=== PATIENT | female | born 1975 | race Caucasian/White ===

== ENCOUNTER → 2016-12-09 | Outpatient (REF) | payer OTHER | LOC: M SFHCLERA 19:52 | PROVIDERS: ATTEND Physician Assistant | DX: R50.9 Fever, unspecified (principal) ==

== ENCOUNTER 2017-01-18 04:38 | Emergency (ER) | payer OTHER ==
[2017-01-18] MEDS ORDERED: KETOROLAC 30 MG/ML VIAL (J1885) As Ordered ONE (05:57)
[2017-01-18] MEDS ORDERED: METHOCARBAMOL 500 MG TAB As Ordered ONE (06:00)
[2017-01-18] MEDS ORDERED: traMADol 50 MG TAB As Ordered ONE (06:50)
--- NOTE | 2017-01-18 07:12 | EDDOCDS ---
Physician Documentation [facility] Name: Radha Melton Age: 41 yrs Sex: Female : 1975 Arrival Date: 01/18/2017 Time: 04:38 Bed 10 Private MD: Disposition: 01/18/17 07:01 Discharged to Home/Self Care. Impression: Chronic pain syndrome, Pain in left shoulder, Low back pain. - Condition is Stable. - Medication Reconciliation, Local Pharmacy Hours form. - Follow up: Private Physician; When: Call to arrange an appointment; Reason: Continuance of care. - Problem is chronic. - Symptoms have improved. Historical: - Allergies: Xanax (itchy, burning feeling all over); - Home Meds: 1. estrogen .625 mg daily (Last dose: 01/17/2017) 2. estrogen vaginal cream twice weekly as needed (Last dose: 01/17/2017) 3. gabapentin 300 mg Oral tab 1 tab twice a day for neuropathic pain (Last dose: 01/13/2017) 4. Lipitor 40 mg Oral tab 1 tab once daily (Last dose: 01/17/2017) 5. medroxyprogesterone 5 mg Oral tab 1 tab once daily (Last dose: 01/17/2017) - PMHx: chronic left shoulder pain; Chronic Low Back Pain; ectopic ; Endometriosis; Hypercholesterolemia; Migraine Headaches; spinal injections; - PSHx: Hysterectomy; Appendectomy; Bunion Surgery; Laparoscopy; - Social history: Smoking status: Patient states was never smoker of tobacco. No barriers to communication noted, The patient speaks fluent Estonian, Speaks appropriately for age. - Family history: Not pertinent. - : The pt / caregiver states he / she is not on anticoagulants. Home medication list is obtained from the patient, [employer] import data. - Exposure Risk Screening:: None identified. 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 6 in. (167.64 cm) (R); Pain 8/10; 07:09 BP 134 / 94; Pulse 83; Resp 18; Temp 97.4; Pulse Ox 97% ; Pain 5/10; pml 07:11 Pain 5/10; pml 05:11 Body Mass Index 27.44 (77.11 kg, 167.64 cm) [facility] [place]DM: 05:31 ketorolac 60 mg IM once ordered. cs11 05:31 Robaxin 1 grams IM once ordered. cs11 06:01 Financial registration complete. hs2 06:02 [facility] Payment Agreement was scanned into [employer] and attached to record. hs2 06:47 traMADol 50 mg PO once ordered. cs11 Administered Medications: 06:05 Drug: ketorolac 60 mg [ketorolac 30 mg/mL (1 mL) injection solution (2 mL)] Route: IM; af2 Site: left gluteus; 07:11 Follow up: Pain 5/10 Adult; Response: Pain is decreased pml 06:06 Drug: Robaxin 1 grams [Robaxin 100 mg/mL injection solution (10 mL)] {Note: PO per Dr. larry De Leon.} Route: IM; Site: right gluteus; 06:52 Drug: traMADol 50 mg [tramadol 50 mg tablet (1 tabs)] Route: PO; af2 Signatures: Giana Camarena RN RN [facility] [place] Yokasta Christensen RN RN pml Schiff, Craig, DO cs11 Jolly Alegre RN RN af2 Aleena Carreon, Reg Reg hs2 The chart was reviewed and I authenticate all verbal orders and agree with the evaluation and treatment provided.Attachments: 06:02 [facility] Payment Agreement hs2 MTDD
--- NOTE | 2017-01-18 07:13 | EDDOCDS ---
Nurse's Notes [facility] Name: Radha Melton Age: 41 yrs Sex: Female : 1975 Arrival Date: 01/18/2017 Time: 04:38 Bed 10 Private MD: Diagnosis: Chronic pain syndrome;Pain in left shoulder;Low back pain Presentation: 01/18 05:04 Presenting complaint: Patient states: Sharp pain from neck, down the spine to the mid kmg1 left buttocks. No recent injury. Acute neurological deficits are not present. Mechanism of Injury: No Mechanism of Injury. Suicide/Homicide risk assessment- the patient denies having any suicidal and/or homicidal ideations and does not present with any other emotional, behavioral or mental health complaints. Status: The patient is a dependent. Transition of care: patient was not received from another setting of care. 05:04 Acuity: JHONNY Level 4 km 05:04 Method Of Arrival: Walkin/Carried/Asstd km 07:11 Adult Sepsis Screening: The patient does not have new or worsening altered mentation. pml Patient's respiratory rate is less than 22. Systolic blood pressure is greater than 100. Patient has a qSOFA score of 0- Negative Sepsis Screen. Triage Assessment: 05:08 General: Appears in no apparent distress, comfortable, Behavior is appropriate for age, kmg1 cooperative. Pain: Location: anterior aspect of left shoulder, back of neck, left gluteus vlad, thoracic area, lumbar area and sacrum Pain currently is 8 out of 10 on a pain scale. Quality of pain is described as sharp, shooting. HIV screening NA for this visit Offered previously. Musculoskeletal: Reports pain in back of neck and back. 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 estrogen .625 mg daily (Last dose: 01/17/2017) 2. estrogen vaginal cream twice weekly as needed (Last dose: 01/17/2017) 3. gabapentin 300 mg Oral tab 1 tab twice a day for neuropathic pain (Last dose: 01/13/2017) 4. Lipitor 40 mg Oral tab 1 tab once daily (Last dose: 01/17/2017) 5. medroxyprogesterone 5 mg Oral tab 1 tab once daily (Last dose: 01/17/2017) - PMHx: chronic left shoulder pain; Chronic Low Back Pain; ectopic ; Endometriosis; Hypercholesterolemia; Migraine Headaches; spinal injections; - PSHx: Hysterectomy; Appendectomy; Bunion Surgery; Laparoscopy; - Social history: Smoking status: Patient states was never smoker of tobacco. No barriers to communication noted, The patient speaks fluent Yi, Speaks appropriately for age. - Family history: Not pertinent. - : The pt / caregiver states he / she is not on anticoagulants. Home medication list is obtained from the patient, [employer] import data. - Exposure Risk Screening:: None identified. Screenin:23 Screening information is obtained from the patient. Screening information is obtained af2 from. Fall risk: No risks identified. Assistance ADL's: requires no assistance with activities of daily living. Abuse/DV Screen: The patient / caregiver reports he/she is: not in a situation that causes fear, pain or injury. Nutritional screening: No deficits noted. Advance Directives: Currently, there is no health care proxy. home support is adequate. Assessment: 06:22 General: Appears uncomfortable, Behavior is cooperative. Neurological: Level of af2 Consciousness is awake, alert. Respiratory: Airway is patent Respiratory effort is even, unlabored. Musculoskeletal: Reports pain in buttocks and back and anterior aspect of left shoulder and sacrum and lumbar area and thoracic area and left gluteus vlad and back of neck and left arm. 07:09 General: Appears in no apparent distress, Behavior is appropriate for age, cooperative. pml Pain: Location: anterior aspect of left shoulder and sacrum and lumbar area Pain currently is 5 out of 10 on a pain scale. Neurological: Level of Consciousness is awake, alert, Oriented to person, place, time. Cardiovascular: Capillary refill < 3 seconds. Respiratory: Airway is patent Respiratory effort is even, unlabored, Respiratory pattern is regular, symmetrical. GI: Abdomen is non- distended. Derm: Skin is pink, warm & dry. Musculoskeletal: Circulation, motion, and sensation intact. Vital Signs: 05:11 BP 132 / 93; Pulse 78; Resp 20; Temp 96.4(O); Pulse Ox 97% on R/A; Weight 77.11 kg (R); kmg1 Height 5 ft. 6 in. (167.64 cm) (R); Pain 8/10; 07:09 BP 134 / 94; Pulse 83; Resp 18; Temp 97.4; Pulse Ox 97% ; Pain 5/10; pml 07:11 Pain 5/10; pml 05:11 Body Mass Index 27.44 (77.11 kg, 167.64 cm) [facility] [place]als: 05:08 Log In Time: January 18, 2017 at 04:39. [facility] [place] Course: 04:39 Patient visited by Aleena Carreon Reg. hs2 04:39 Patient moved to Waiting hs2 05:05 Triage Initiated km 05:14 Patient moved to 10 km 05:16 Jose De Leon DO is Attending Physician. cs11 05:16 Patient visited by Jose De Leon DO. cs11 06:02 [facility] Payment Agreement was scanned into [employer] and attached to record. hs2 06:07 Patient visited by Jolly Alegre RN. af2 06:24 The patient / caregiver is instructed regarding the plan of care and ED course. af2 06:24 No IV's were initiated during this patient's visit. No procedures done that require af2 assistance. 06:40 Patient visited by Jolly Alegre RN. af2 06:41 Patient visited by Jolly Alegre RN. af2 06:53 Patient visited by Jolly Alegre RN. af2 06:58 Yokasta Christnesen,SOHA is Primary Nurse. pml Administered Medications: 06:05 Drug: ketorolac 60 mg [ketorolac 30 mg/mL (1 mL) injection solution (2 mL)] Route: IM; af2 Site: left gluteus; 07:11 Follow up: Pain 5/10 Adult; Response: Pain is decreased pml 06:06 Drug: Robaxin 1 grams [Robaxin 100 mg/mL injection solution (10 mL)] {Note: PO per Dr. larry De Leon.} Route: IM; Site: right gluteus; 06:52 Drug: traMADol 50 mg [tramadol 50 mg tablet (1 tabs)] Route: PO; af2 Order Results: There are currently no results for this order. Outcome: 07:01 Discharge ordered by Provider. 11 07:09 Discharge Assessment: Patient awake, alert and oriented x 3. No cognitive and/or pml functional deficits noted. Patient verbalized understanding of disposition instructions. patient administered narcotics - no. The following High Risk Discharge criteria are identified: None. Discharged to home ambulatory. Condition: good Condition: stable. Discharge instructions given to patient, Instructed on discharge instructions, follow up and referral plans. Demonstrated understanding of instructions, Pt was receptive of discharge instructions/ teaching. No special radiology studies were completed. Property sent home with patient. 07:11 Patient left the ED. pml Signatures: Giana Camarena RN RN kmg1 Yokasta Christensen RN RN pml Jose De Leon, DO cs11 Jolly Alegre RN RN af2 Aleena Carreon, Reg Reg hs2 MTDD
--- NOTE | 2017-01-20 08:13 | EDDOCDS ---
Nurse's Notes [facility] Name: Radha Melton Age: 41 yrs Sex: Female : 1975 Arrival Date: 01/18/2017 Time: 04:38 Bed 10 Private MD: Diagnosis: Chronic pain syndrome;Pain in left shoulder;Low back pain Presentation: 01/18 05:04 Presenting complaint: Patient states: Sharp pain from neck, down the spine to the mid kmg1 left buttocks. No recent injury. Acute neurological deficits are not present. Mechanism of Injury: No Mechanism of Injury. Suicide/Homicide risk assessment- the patient denies having any suicidal and/or homicidal ideations and does not present with any other emotional, behavioral or mental health complaints. Status: The patient is a dependent. Transition of care: patient was not received from another setting of care. 05:04 Acuity: JHONNY Level 4 km 05:04 Method Of Arrival: Walkin/Carried/Asstd km 07:11 Adult Sepsis Screening: The patient does not have new or worsening altered mentation. pml Patient's respiratory rate is less than 22. Systolic blood pressure is greater than 100. Patient has a qSOFA score of 0- Negative Sepsis Screen. Triage Assessment: 05:08 General: Appears in no apparent distress, comfortable, Behavior is appropriate for age, kmg1 cooperative. Pain: Location: anterior aspect of left shoulder, back of neck, left gluteus vlad, thoracic area, lumbar area and sacrum Pain currently is 8 out of 10 on a pain scale. Quality of pain is described as sharp, shooting. HIV screening NA for this visit Offered previously. Musculoskeletal: Reports pain in back of neck and back. 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 estrogen .625 mg daily (Last dose: 01/17/2017) 2. estrogen vaginal cream twice weekly as needed (Last dose: 01/17/2017) 3. gabapentin 300 mg Oral tab 1 tab twice a day for neuropathic pain (Last dose: 01/13/2017) 4. Lipitor 40 mg Oral tab 1 tab once daily (Last dose: 01/17/2017) 5. medroxyprogesterone 5 mg Oral tab 1 tab once daily (Last dose: 01/17/2017) - PMHx: chronic left shoulder pain; Chronic Low Back Pain; ectopic ; Endometriosis; Hypercholesterolemia; Migraine Headaches; spinal injections; - PSHx: Hysterectomy; Appendectomy; Bunion Surgery; Laparoscopy; - Social history: Smoking status: Patient states was never smoker of tobacco. No barriers to communication noted, The patient speaks fluent French, Speaks appropriately for age. - Family history: Not pertinent. - : The pt / caregiver states he / she is not on anticoagulants. Home medication list is obtained from the patient, [employer] import data. - Exposure Risk Screening:: None identified. Screenin:23 Screening information is obtained from the patient. Screening information is obtained af2 from. Fall risk: No risks identified. Assistance ADL's: requires no assistance with activities of daily living. Abuse/DV Screen: The patient / caregiver reports he/she is: not in a situation that causes fear, pain or injury. Nutritional screening: No deficits noted. Advance Directives: Currently, there is no health care proxy. home support is adequate. Assessment: 06:22 General: Appears uncomfortable, Behavior is cooperative. Neurological: Level of af2 Consciousness is awake, alert. Respiratory: Airway is patent Respiratory effort is even, unlabored. Musculoskeletal: Reports pain in buttocks and back and anterior aspect of left shoulder and sacrum and lumbar area and thoracic area and left gluteus vlad and back of neck and left arm. 07:09 General: Appears in no apparent distress, Behavior is appropriate for age, cooperative. pml Pain: Location: anterior aspect of left shoulder and sacrum and lumbar area Pain currently is 5 out of 10 on a pain scale. Neurological: Level of Consciousness is awake, alert, Oriented to person, place, time. Cardiovascular: Capillary refill < 3 seconds. Respiratory: Airway is patent Respiratory effort is even, unlabored, Respiratory pattern is regular, symmetrical. GI: Abdomen is non- distended. Derm: Skin is pink, warm & dry. Musculoskeletal: Circulation, motion, and sensation intact. Vital Signs: 05:11 BP 132 / 93; Pulse 78; Resp 20; Temp 96.4(O); Pulse Ox 97% on R/A; Weight 77.11 kg (R); kmg1 Height 5 ft. 6 in. (167.64 cm) (R); Pain 8/10; 07:09 BP 134 / 94; Pulse 83; Resp 18; Temp 97.4; Pulse Ox 97% ; Pain 5/10; pml 07:11 Pain 5/10; pml 05:11 Body Mass Index 27.44 (77.11 kg, 167.64 cm) [facility] [place]als[place] 05:08 Log In Time: January 18, 2017 at 04:39. [facility] [place] Course: 04:39 Patient visited by Aleena Carreon Reg. hs2 04:39 Patient moved to Waiting hs2 05:05 Triage Initiated km 05:14 Patient moved to 10 km 05:16 Jose De Leon DO is Attending Physician. cs11 05:16 Patient visited by Jose De Leon DO. cs11 06:02 [facility] Payment Agreement was scanned into [employer] and attached to record. hs2 06:07 Patient visited by Jolly Alegre RN. af2 06:24 The patient / caregiver is instructed regarding the plan of care and ED course. af2 06:24 No IV's were initiated during this patient's visit. No procedures done that require af2 assistance. 06:40 Patient visited by Jolly Alegre RN. af2 06:41 Patient visited by Jolly Alegre RN. af2 06:53 Patient visited by Jolly Alegre RN. af2 06:58 Yokasta Christensen,SOHA is Primary Nurse. pml 13:37 T-Sheet-- Draft Copy was scanned into [employer] and attached to record. seh Administered Medications: 06:05 Drug: ketorolac 60 mg [ketorolac 30 mg/mL (1 mL) injection solution (2 mL)] Route: IM; af2 Site: left gluteus; 07:11 Follow up: Pain 5/10 Adult; Response: Pain is decreased pml 06:06 Drug: Robaxin 1 grams [Robaxin 100 mg/mL injection solution (10 mL)] {Note: PO per Dr. larry De Leon.} Route: IM; Site: right gluteus; 06:52 Drug: traMADol 50 mg [tramadol 50 mg tablet (1 tabs)] Route: PO; af2 Order Results: There are currently no results for this order. Outcome: 07:01 Discharge ordered by Provider. 11 07:09 Discharge Assessment: Patient awake, alert and oriented x 3. No cognitive and/or pml functional deficits noted. Patient verbalized understanding of disposition instructions. patient administered narcotics - no. The following High Risk Discharge criteria are identified: None. Discharged to home ambulatory. Condition: good Condition: stable. Discharge instructions given to patient, Instructed on discharge instructions, follow up and referral plans. Demonstrated understanding of instructions, Pt was receptive of discharge instructions/ teaching. No special radiology studies were completed. Property sent home with patient. 07:11 Patient left the ED. pml Signatures: Giana Camarena RN RN km Yokasta Christensen RN RN pml Jose De Leon, DO cs11 Jolly Alegre RN RN af2 Aleena Carreon, Reg Reg hs2 Mony Gutierrez Chart Complete MTDD
--- NOTE | 2017-01-20 08:13 | EDDOCDS ---
Physician Documentation [facility] Name: Radha Melton Age: 41 yrs Sex: Female : 1975 Arrival Date: 01/18/2017 Time: 04:38 Bed 10 Private MD: Disposition: 01/18/17 07:01 Discharged to Home/Self Care. Impression: Chronic pain syndrome, Pain in left shoulder, Low back pain. - Condition is Stable. - Medication Reconciliation, Local Pharmacy Hours form. - Follow up: Private Physician; When: Call to arrange an appointment; Reason: Continuance of care. - Problem is chronic. - Symptoms have improved. Historical: - Allergies: Xanax (itchy, burning feeling all over); - Home Meds: 1. estrogen .625 mg daily (Last dose: 01/17/2017) 2. estrogen vaginal cream twice weekly as needed (Last dose: 01/17/2017) 3. gabapentin 300 mg Oral tab 1 tab twice a day for neuropathic pain (Last dose: 01/13/2017) 4. Lipitor 40 mg Oral tab 1 tab once daily (Last dose: 01/17/2017) 5. medroxyprogesterone 5 mg Oral tab 1 tab once daily (Last dose: 01/17/2017) - PMHx: chronic left shoulder pain; Chronic Low Back Pain; ectopic ; Endometriosis; Hypercholesterolemia; Migraine Headaches; spinal injections; - PSHx: Hysterectomy; Appendectomy; Bunion Surgery; Laparoscopy; - Social history: Smoking status: Patient states was never smoker of tobacco. No barriers to communication noted, The patient speaks fluent Bulgarian, Speaks appropriately for age. - Family history: Not pertinent. - : The pt / caregiver states he / she is not on anticoagulants. Home medication list is obtained from the patient, [employer] import data. - Exposure Risk Screening:: None identified. 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 6 in. (167.64 cm) (R); Pain 8/10; 07:09 BP 134 / 94; Pulse 83; Resp 18; Temp 97.4; Pulse Ox 97% ; Pain 5/10; pml 07:11 Pain 5/10; pml 05:11 Body Mass Index 27.44 (77.11 kg, 167.64 cm) kmg1 MDM: 05:31 ketorolac 60 mg IM once ordered. cs11 05:31 Robaxin 1 grams IM once ordered. cs11 06:01 Financial registration complete. hs2 06:02 [facility] Payment Agreement was scanned into [employer] and attached to record. hs2 06:47 traMADol 50 mg PO once ordered. cs11 13:37 T-Sheet-- Draft Copy was scanned into [employer] and attached to record. seh Administered Medications: 06:05 Drug: ketorolac 60 mg [ketorolac 30 mg/mL (1 mL) injection solution (2 mL)] Route: IM; af2 Site: left gluteus; 07:11 Follow up: Pain 5/10 Adult; Response: Pain is decreased pml 06:06 Drug: Robaxin 1 grams [Robaxin 100 mg/mL injection solution (10 mL)] {Note: PO per Dr. larry De Leon.} Route: IM; Site: right gluteus; 06:52 Drug: traMADol 50 mg [tramadol 50 mg tablet (1 tabs)] Route: PO; af2 Signatures: Giana Camarena RN RN kmg1 Yokasta Christensen RN RN pml Schiff, Craig, DO DO cs11 Jolly Alegre RN RN af2 Alenea Carreon, Reg Reg 2 Mony Gutierrez [facility] The chart was reviewed and I authenticate all verbal orders and agree with the evaluation and treatment provided.Attachments: 06:02 [facility] Payment Agreement hs2 13:37 T-Sheet-- Draft Copy se Chart Complete MTDD
--- NOTE | 2017-01-20 08:13 | EDDOCDS ---
Physician Documentation [facility] Name: Radha Melton Age: 41 yrs Sex: Female : 1975 Arrival Date: 01/18/2017 Time: 04:38 Bed 10 Private MD: Disposition: 01/18/17 07:01 Discharged to Home/Self Care. Impression: Chronic pain syndrome, Pain in left shoulder, Low back pain. - Condition is Stable. - Medication Reconciliation, Local Pharmacy Hours form. - Follow up: Private Physician; When: Call to arrange an appointment; Reason: Continuance of care. - Problem is chronic. - Symptoms have improved. Historical: - Allergies: Xanax (itchy, burning feeling all over); - Home Meds: 1. estrogen .625 mg daily (Last dose: 01/17/2017) 2. estrogen vaginal cream twice weekly as needed (Last dose: 01/17/2017) 3. gabapentin 300 mg Oral tab 1 tab twice a day for neuropathic pain (Last dose: 01/13/2017) 4. Lipitor 40 mg Oral tab 1 tab once daily (Last dose: 01/17/2017) 5. medroxyprogesterone 5 mg Oral tab 1 tab once daily (Last dose: 01/17/2017) - PMHx: chronic left shoulder pain; Chronic Low Back Pain; ectopic ; Endometriosis; Hypercholesterolemia; Migraine Headaches; spinal injections; - PSHx: Hysterectomy; Appendectomy; Bunion Surgery; Laparoscopy; - Social history: Smoking status: Patient states was never smoker of tobacco. No barriers to communication noted, The patient speaks fluent Korean, Speaks appropriately for age. - Family history: Not pertinent. - : The pt / caregiver states he / she is not on anticoagulants. Home medication list is obtained from the patient, [employer] import data. - Exposure Risk Screening:: None identified. 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 6 in. (167.64 cm) (R); Pain 8/10; 07:09 BP 134 / 94; Pulse 83; Resp 18; Temp 97.4; Pulse Ox 97% ; Pain 5/10; pml 07:11 Pain 5/10; pml 05:11 Body Mass Index 27.44 (77.11 kg, 167.64 cm) kmg1 MDM: 05:31 ketorolac 60 mg IM once ordered. cs11 05:31 Robaxin 1 grams IM once ordered. cs11 06:01 Financial registration complete. hs2 06:02 [facility] Payment Agreement was scanned into [employer] and attached to record. hs2 06:47 traMADol 50 mg PO once ordered. cs11 13:37 T-Sheet-- Draft Copy was scanned into [employer] and attached to record. seh Administered Medications: 06:05 Drug: ketorolac 60 mg [ketorolac 30 mg/mL (1 mL) injection solution (2 mL)] Route: IM; af2 Site: left gluteus; 07:11 Follow up: Pain 5/10 Adult; Response: Pain is decreased pml 06:06 Drug: Robaxin 1 grams [Robaxin 100 mg/mL injection solution (10 mL)] {Note: PO per Dr. larry De Leon.} Route: IM; Site: right gluteus; 06:52 Drug: traMADol 50 mg [tramadol 50 mg tablet (1 tabs)] Route: PO; af2 Signatures: Giana Camarena RN RN kmg1 Yokasta Christensen RN RN pml Schiff, Craig, DO DO cs11 Jolly Alegre RN RN af2 Aleena Carreon, Reg Reg 2 Mony Gutierrez [facility] The chart was reviewed and I authenticate all verbal orders and agree with the evaluation and treatment provided.Attachments: 06:02 [facility] Payment Agreement hs2 13:37 T-Sheet-- Draft Copy se Chart Complete MTDD
== END 2017-01-18 07:11 | disposition home or self-care (01) ==
LOC: M ED 04:38
DX: G89.29 Other chronic pain (principal); M25.512 Pain in left shoulder; M54.9 Dorsalgia, unspecified; E78.00 Pure hypercholesterolemia, unspecified; G43.909 Migraine, unspecified, not intractable, without status migrainosus; N80.9 Endometriosis, unspecified; Z79.899 Other long term (current) drug therapy; Z88.8 Allergy status to other drugs, medicaments and biological substances
CPT/HCPCS: 96372; 99283; J1885

== ENCOUNTER 2017-02-01 18:39 | Emergency (ER) | payer OTHER ==
[~2017-02-01] VITALS: Ht 170.2 cm; Wt 79.4 kg
[2017-02-01] MEDS ORDERED: GABA300C3 PO (18:52)
[2017-02-01] MEDS ORDERED: Estrogen TOP (18:52)
[2017-02-01] MEDS ORDERED: LIPITOR PO (18:52)
[2017-02-01] MEDS ORDERED: TRAM50TA2 PO (18:52)
[2017-02-01] MEDS ORDERED: MEDR5TAB3 PO (18:52)
[2017-02-01] MEDS ORDERED: NAPROXEN 250 MG TAB PO ONE (20:45)
[2017-02-01] MEDS ORDERED: NAPR500T PO (20:48)
[2017-02-01 21:05] VITALS: BP 137/85
--- NOTE | 2017-02-02 08:21 | REP ---
LEFT KNEE: CLINICAL: Trauma. TECHNIQUE: AP, lateral, bilateral oblique and sunrise views of the left knee. FINDINGS: Age related degenerative changes are appreciated. While no definite acute fracture or dislocation is identified, subtle acute injury involving the proximal fibular head cannot be excluded and should be correlated with physical examination. Joint spaces are intact. No obvious effusion. No subcutaneous emphysema or radiodense foreign body. IMPRESSION: Age related degenerative changes without obvious acute fracture or dislocation. Cannot exclude subtle injury to the proximal fibula and clinical correlation may be warranted along with repeat evaluation if necessary. Signed by Ramon Escobedo MD 02/06/2017 11:04 [facility]
--- NOTE | 2017-02-06 15:00 | ED PDOC ---
Post-Departure Follow-Up dr peres and dejag faxed formal report of left knee film for fu Rai Neff MD Feb 06, 2017 15:00
== END 2017-02-01 21:12 | disposition home or self-care (01) ==
LOC: M ED 20:40
DX: M23.92 Unspecified internal derangement of left knee (principal); E78.00 Pure hypercholesterolemia, unspecified; M54.9 Dorsalgia, unspecified; Z79.899 Other long term (current) drug therapy

== ENCOUNTER 2017-03-12 19:59 | Emergency (ER) | payer OTHER ==
[~2017-03-12] VITALS: Ht 167.6 cm; Wt 81.6 kg
[~2017-03-12 19:59] MED LIST: Estrogen TOP; GABA-282 PO; LIPITOR PO; MEDR5TAB3 PO; NAPR500T PO; TRAM50TA2 PO
[2017-03-12 20:00] VITALS: BP 153/101
[2017-03-12] MEDS ORDERED: OXYC1TAB23 PO (20:50)
[2017-03-12] MEDS ORDERED: CYCL10TA PO (20:50)
[2017-03-12] MEDS ORDERED: CYCLOBENZAPRINE 10 MG TAB PO ONE (21:00)
[2017-03-12] MEDS ORDERED: PERCOCET 5MG/325MG TAB PO ONE (21:00)
[2017-03-12] MEDS ORDERED: OXYCODONE/APAP 5MG/325MG(BULK FOR ED) 1 TABLET PO ONE (21:00)
== END 2017-03-12 21:06 | disposition home or self-care (01) ==
LOC: M ED 20:51
DX: M54.12 Radiculopathy, cervical region (principal)

== ENCOUNTER 2017-04-03 03:26 | Emergency (ER) | payer OTHER ==
[~2017-04-03] VITALS: Ht 170.2 cm; Wt 80.7 kg
[~2017-04-03 03:26] MED LIST changes: +CYCL10TA PO; +OXYC1TAB23 PO
[2017-04-03 03:32] VITALS: BP 129/75
[2017-04-03] MEDS ORDERED: COLA100C3 PO (03:37)
== END 2017-04-03 04:43 | disposition home or self-care (01) ==
LOC: M ED 04:41
DX: S10.92XA Blister (nonthermal) of unspecified part of neck, initial encounter (principal); X58.XXXA Exposure to other specified factors, initial encounter; Y92.89 Other specified places as the place of occurrence of the external cause; Y93.89 Activity, other specified; Y99.8 Other external cause status; Z98.1 Arthrodesis status; Z79.899 Other long term (current) drug therapy; Z88.8 Allergy status to other drugs, medicaments and biological substances

== ENCOUNTER 2017-05-21 09:17 | Emergency (ER) | payer OTHER ==
[~2017-05-21] VITALS: Ht 170.2 cm; Wt 83.0 kg
[~2017-05-21 09:17] MED LIST changes: +COLA100C5 PO
[2017-05-21] MEDS ORDERED: CYCL10TA PO (09:34)
[2017-05-21] MEDS ORDERED: NS 1,000 ML IV ONE (10:45)
[2017-05-21] MEDS ORDERED: KETOROLAC 30 MG/ML VIAL (J1885) IV ONE (10:45)
--- NOTE | 2017-05-21 11:30 | REP ---
Clinical: Right flank and bilateral back pain. Comparison: None. Findings: Lung bases are clear. Visualized heart and pericardium normal. Liver, spleen, pancreas, gallbladder, bilateral adrenal glands and left kidney appear normal. The right kidney demonstrates a focal central 3 cm hypodensity which may reflect parapelvic cyst or focally dilated garcía as there is no evidence for hydroureter. No intra renal or obstructing ureteral calculi are identified. The patient appears to be status post appendectomy and there is no evidence for acute bowel obstruction or inflammatory process. Evaluation of the pelvis demonstrates normal bladder and evidence for prior hysterectomy. A small amount of free fluid is identified in the pelvis and nonspecific. Small fat containing left inguinal hernia. No free air. No obvious adenopathy. Abdominal aorta without aneurysm. Musculoskeletal structures demonstrate degenerative changes without focal osseous abnormality. Impression: 1. 3 cm hypodensity in the right kidney suggests cyst versus focal calyceal dilatation. The ureters are normal and there is no evidence for intra renal or obstructing ureteral calculi and no perinephric stranding to suggest acute renal process. Correlation with urinalysis may be warranted. 2. Evidence for prior appendectomy and hysterectomy. 3. Small amount of free fluid in the pelvis is nonspecific. 4. No further acute abdominopelvic pathology appreciated. Signed by Ramon Escobedo MD 05/21/2017 11:22 A
[2017-05-21 11:33] LABS: BASO % 0.4 % (0.0-1.0); EOS # 0.1 K/mm3 (0.0-0.50); EOS % 2.5 % (0.0-3.0); LARGE UNSTAINED CELL # 0.1 K/mm3 (0.0-0.4); LARGE UNSTAINED CELL % 1.6 % (0.0-4.0); LYMPH # 1.6 K/mm3 (1.5-4.5); LYMPH % 27.9 % (24.0-44.0); MEAN CORPUSCULAR HEMOGLOBIN 31.3 pg (27.0-33.0); MEAN CORPUSCULAR HGB CONC 34.4 g/dl (32.0-36.5); MEAN CORPUSCULAR VOLUME 90.8 fl (80.0-96.0); MONO # 0.2 K/mm3 (0.0-0.8); MONO % 4.3 % (0.0-5.0); NEUTROPHILS # 3.5 K/mm3 (1.8-7.7); NEUTROPHILS % 63.4 % (36.0-66.0); PLATELET COUNT, AUTOMATED 216 k/mm3 (150-450); WHITE BLOOD COUNT 5.6 K/mm3 (4.0-10.0)
[2017-05-21 11:56] LABS: ALBUMIN 4.3 GM/DL (3.2-5.2); ALBUMIN/GLOBULIN RATIO 1.13 (1.00-1.93); ALKALINE PHOSPHATASE 66 U/L (45-117); ALT/SGPT 27 U/L (12-78); ANION GAP 3 MEQ/L (8-16); AST/SGOT 17 U/L (15-37); BILIRUBIN,TOTAL 1.2 MG/DL (0.2-1.0); BLOOD UREA NITROGEN 14 MG/DL (7-18); CALCIUM LEVEL 9.3 MG/DL (8.5-10.1); CARBON DIOXIDE LEVEL 32 MEQ/L (21-32); CHLORIDE LEVEL 107 MEQ/L (98-107); CREATININE FOR GFR 1.02 MG/DL (0.55-1.02); GLOMERULAR FILTRATION RATE > 60.0 (>58); GLUCOSE, FASTING 95 MG/DL (70-105); POTASSIUM SERUM 4.4 MEQ/L (3.5-5.1); SODIUM LEVEL 142 MEQ/L (136-145); TOTAL PROTEIN 8.1 GM/DL (6.4-8.2)
[2017-05-21] MEDS ORDERED: ONDANSETRON 4MG/2ML VIAL (J2405) IV ONE (12:45)
[2017-05-21] MEDS ORDERED: MORPHINE 4 MG/ML 1ML SYRINGE IV ONE (12:45)
[2017-05-21] MEDS ORDERED: ZOFR4TAB3 PO (12:52)
[2017-05-21] MEDS ORDERED: BENT20TA PO (12:52)
[2017-05-21] MEDS ORDERED: MOBI4TAB PO (12:52)
[2017-05-21] MEDS ORDERED: NORCOTAB PO (12:59)
[2017-05-21 13:01] VITALS: BP 127/92
--- NOTE | 2017-05-22 08:22 | ED PDOC ---
Post-Departure Follow-Up radiology report faxed to deandre Monsivais Sarah MD May 22, 2017 08:22
== END 2017-05-21 13:14 | disposition home or self-care (01) ==
LOC: M ED 09:17
DX: K40.90 Unilateral inguinal hernia, without obstruction or gangrene, not specified as recurrent (principal); M54.5 Low back pain; N28.1 Cyst of kidney, acquired
CPT/HCPCS: 74176; 80053; 81001; 83690; 85025; 87086; 96374; 96375; 99283; J1885; J2405

== ENCOUNTER → 2017-06-11 | Outpatient (REF) | payer OTHER ==
[~2017-06-11] MED LIST changes: +AMIT25TA; +BENT20TA PO; +IBUP200C10 PO; +MOBI4TAB PO; +NORCOTAB PO; +PRED20TA PO; +PREG50CA; +ROBA500T PO; +ZOFR4TAB3 PO
[2017-06-11 17:50] LABS: MEAN CORPUSCULAR HEMOGLOBIN 32.2 pg (27.0-33.0); MEAN CORPUSCULAR HGB CONC 35.5 g/dl (32.0-36.5); MEAN CORPUSCULAR VOLUME 90.9 fl (80.0-96.0); WHITE BLOOD COUNT 5.6 K/mm3 (4.0-10.0)
[2017-06-11 18:19] LABS: ALBUMIN 4.5 GM/DL (3.2-5.2); ALBUMIN/GLOBULIN RATIO 1.41 (1.00-1.93); ALKALINE PHOSPHATASE 70 U/L (45-117); ALT/SGPT 19 U/L (12-78); ANION GAP 6 MEQ/L (8-16); AST/SGOT 11 U/L (15-37); BILIRUBIN,TOTAL 1.2 MG/DL (0.2-1.0); BLOOD UREA NITROGEN 17 MG/DL (7-18); CALCIUM LEVEL 9.5 MG/DL (8.5-10.1); CARBON DIOXIDE LEVEL 29 MEQ/L (21-32); CHLORIDE LEVEL 103 MEQ/L (98-107); CREATININE FOR GFR 1.06 MG/DL (0.55-1.02); GLOMERULAR FILTRATION RATE > 60.0 (>58); GLUCOSE, FASTING 89 MG/DL (70-105); POTASSIUM SERUM 4.7 MEQ/L (3.5-5.1); SODIUM LEVEL 138 MEQ/L (136-145); TOTAL PROTEIN 7.7 GM/DL (6.4-8.2)
== END ==
LOC: M SFHCLERA 11:48
PROVIDERS: ATTEND Family Medicine
DX: Z01.818 Encounter for other preprocedural examination (principal)

== ENCOUNTER → 2017-08-06 | Outpatient (REF) | payer OTHER | LOC: M SFHCLERA 16:39 | PROVIDERS: ATTEND Family Medicine | DX: A69.20 Lyme disease, unspecified (principal) ==

== ENCOUNTER → 2017-08-27 | Outpatient (CLI) | payer OTHER ==
--- NOTE | 2017-08-27 08:55 | REP ---
LUMBAR SPINE, FIVE VIEWS: HISTORY: Back pain. COMPARISON: 10/01/2016. There is no acute fracture or subluxation. The L4-5 intervertebral disc is decreased in height consistent with disc degeneration. Osteophytes are present on L2 and 4. The facet joints are normal in appearance. IMPRESSION: Degenerative change as described above. Signed by Dillon Beavers MD 08/27/2017 09:00 A
== END ==
LOC: M LRY 08:00
PROVIDERS: ATTEND Family Medicine
DX: M54.5 Low back pain (principal); G89.29 Other chronic pain

== ENCOUNTER 2017-08-28 19:05 | Emergency (ER) | payer OTHER ==
[~2017-08-28] VITALS: Ht 170.2 cm; Wt 80.0 kg
[~2017-08-28 19:05] MED LIST changes: -AMIT25TA; -IBUP200C10 PO; -PRED20TA PO; -PREG50CA; -ROBA500T PO
[2017-08-28] MEDS ORDERED: PREG50CA (19:21)
[2017-08-28] MEDS ORDERED: AMIT25TA (19:21)
[2017-08-28] MEDS ORDERED: IBUP200C10 PO (19:21)
[2017-08-28] MEDS ORDERED: methylPREDNISolone INJ 125 MG/2 ML VIAL (J2930) IM ONE (23:00)
[2017-08-28] MEDS ORDERED: METHOCARBAMOL 1,000 MG/10 ML VIAL (J2800) IM ONE (23:00)
[2017-08-28] MEDS ORDERED: ROBA500T PO (23:18)
[2017-08-28] MEDS ORDERED: PRED20TA PO (23:18)
[2017-08-28 23:51] VITALS: BP 136/95
== END 2017-08-28 23:52 | disposition home or self-care (01) ==
LOC: M ED 19:05
DX: M54.42 Lumbago with sciatica, left side (principal); G89.29 Other chronic pain; F41.9 Anxiety disorder, unspecified; Z88.8 Allergy status to other drugs, medicaments and biological substances; Z98.890 Other specified postprocedural states; Z87.42 Personal history of other diseases of the female genital tract
CPT/HCPCS: 96372; 99282; J2800; J2930

== ENCOUNTER → 2017-09-15 | Outpatient (REF) | payer OTHER ==
[~2017-09-15] MED LIST changes: +AMIT25TA; +IBUP200C10 PO; +PRED20TA PO; +PREG50CA; +ROBA500T PO
[2017-09-15 19:44] LABS: MEAN CORPUSCULAR HGB CONC 32.6 g/dl (32.0-36.5); MEAN CORPUSCULAR VOLUME 92.1 fl (80.0-96.0); PLATELET COUNT, AUTOMATED 234 10^3/uL (150-450); RED CELL DISTRIBUTION WIDTH 11.8 % (11.5-14.5); WHITE BLOOD COUNT 6.8 10^3/uL (4.0-10.0)
[2017-09-15 19:55] LABS: ALBUMIN 4.2 GM/DL (3.2-5.2); ALBUMIN/GLOBULIN RATIO 1.35 (1.00-1.93); ALKALINE PHOSPHATASE 87 U/L (45-117); ALT/SGPT 28 U/L (12-78); ANION GAP 5 MEQ/L (8-16); AST/SGOT 9 U/L (15-37); BILIRUBIN,TOTAL 0.8 MG/DL (0.2-1.0); BLOOD UREA NITROGEN 18 MG/DL (7-18); CALCIUM LEVEL 9.7 MG/DL (8.5-10.1); CARBON DIOXIDE LEVEL 32 MEQ/L (21-32); CHLORIDE LEVEL 107 MEQ/L (98-107); CREATININE FOR GFR 0.99 MG/DL (0.55-1.02); GLOMERULAR FILTRATION RATE > 60.0 (>58); GLUCOSE, FASTING 80 MG/DL (70-105); POTASSIUM SERUM 4.6 MEQ/L (3.5-5.1); SODIUM LEVEL 144 MEQ/L (136-145); TOTAL PROTEIN 7.3 GM/DL (6.4-8.2)
[2017-09-24 06:44] LABS: SUMMARY SEE SEPARATE REPORT
== END ==
LOC: M SFHCLERA 09:24
PROVIDERS: ATTEND Family Medicine
DX: M54.5 Low back pain (principal); M70.62 Trochanteric bursitis, left hip; R52 Pain, unspecified; G89.4 Chronic pain syndrome

== ENCOUNTER → 2017-09-15 | Outpatient (CLI) | payer OTHER ==
--- NOTE | 2017-09-15 10:42 | REP ---
LEFT HIP: Two views of the left hip are performed. There is no acute fracture, dislocation, or intrinsic bone disease. Incidental note is made of phleboliths in the pelvis. IMPRESSION: Negative left hip. Signed by Redd Delatorre MD 09/16/2017 04:24 P
== END ==
LOC: M LRY 09:27
PROVIDERS: ATTEND Family Medicine
DX: M54.5 Low back pain (principal); R52 Pain, unspecified

== ENCOUNTER → 2017-10-27 | Outpatient (CLI) | payer OTHER ==
--- NOTE | 2017-10-27 17:19 | REP ---
MRI LUMBAR SPINE WITHOUT CONTRAST: HISTORY: Back pain. Decreased signal intensity on T2-weighted images is present in the L3-4 through L5-S1 intervertebral discs. The discs are decreased in height. These findings are consistent with disc degeneration. There is no disc bulge or herniation at the L1-2 and L2-3 levels. The nerves exit the neural foramina without compression. A diffuse disc bulge is present at the L3-4 level. There is hypertrophy of the ligamenta flava and posterior articulating facets. These findings produce minimal central canal stenosis. The L3 nerves exit the neural foramina without compression. A diffuse disc bulge is present at the L4-5 level. There is minimal compression of the thecal sac. There is hypertrophy of the ligamenta flava and posterior articulating facets. The L4 nerves exit the neural foramina without compression. A diffuse disc bulge is present at the L5-S1 level. This abuts the thecal sac and S1 nerves. There is hypertrophy of the posterior articulating facets. The L5 nerves exit the neural foramina without compression. The conus medullaris is normal in appearance terminating at the level of the T12-L1 intervertebral discs. A Tarlov cyst is present at the S2 level. Increased signal intensity on T2-weighted images is present in the superior endplate of the L5 vertebral body. This represents degenerative change. IMPRESSION: 1. Minimal central canal stenosis at the L3-4 level secondary to disc bulge, ligamentous and facet hypertrophy. 2. Diffuse disc bulge at the L4-5 level with minimal thecal sac compression. 3. Diffuse disc bulge at the L5-S1 level. This abuts the thecal sac and S1 nerves. Signed by Dillon Beavers MD 10/27/2017 05:20 P
== END ==
LOC: M RAD 13:15
PROVIDERS: ATTEND Family Medicine
DX: M54.5 Low back pain (principal)

== ENCOUNTER → 2017-11-17 | Outpatient (CLI) | payer OTHER ==
--- NOTE | 2017-11-18 09:09 | REP ---
Clinical: Pain. Trauma. Technique: AP, lateral, bilateral oblique views of the right elbow. Findings: No acute fracture or dislocation is appreciated. Joint spaces and surrounding soft tissues appear normal normal for age. Lateral view demonstrates normal positioning to the anterior and posterior fat pads without evidence for effusion/hemarthrosis. No subcutaneous emphysema or foreign body identified. Impression: Age-related changes to the right elbow without acute fracture or dislocation. Signed by Ramon Escobedo MD 11/17/2017 03:20 P
== END ==
LOC: M LRY 14:52
PROVIDERS: ATTEND Family Medicine
DX: M19.021 Primary osteoarthritis, right elbow (principal); S59.901A Unspecified injury of right elbow, initial encounter; X58.XXXA Exposure to other specified factors, initial encounter; Y92.89 Other specified places as the place of occurrence of the external cause; Y93.89 Activity, other specified; Y99.8 Other external cause status

== ENCOUNTER 2017-12-01 06:19 | Day surgery (SDC) | payer OTHER ==
[2017-12-01] MEDS ORDERED: LIDOCAINE 1% MDV 20ML VIAL SQ (06:45)
[2017-12-01] MEDS ORDERED: LR 1,000 ML IV ×2 (07:00→11:00)
[2017-12-01] MEDS: LR 1,000 ML IV (07:37)
[2017-12-01] MEDS: LIDOCAINE W/EPINEPHRINE 1% 20ML VIAL As Ordered (08:04)
[2017-12-01] MEDS ORDERED: PROPOFOL 200 MG/20 ML VIAL As Ordered (08:08)
[2017-12-01] MEDS ORDERED: ROCURONIUM BROMIDE 50 MG/5 ML VIAL As Ordered (08:08)
[2017-12-01] MEDS ORDERED: MIDAZOLAM INJ 2 MG/2 ML VIAL (J2250) As Ordered (08:08)
[2017-12-01] MEDS ORDERED: fentaNYL 250 MCG/5 ML INJECTION (J3010) As Ordered (08:08)
[2017-12-01] MEDS ORDERED: LIDOCAINE 2% INJ 100 MG/5 ML SDV (FOR ANES.) As Ordered (08:08)
[2017-12-01] MEDS: CEFAZOLIN SOD 1 GM in APPROPRIATE DILUENT 1 EA IV (08:26)
[2017-12-01] MEDS ORDERED: ONDANSETRON 4MG/2ML VIAL (J2405) As Ordered (09:23)
[2017-12-01] MEDS ORDERED: NEOSTIGMINE 10 MG/10 ML VIAL (J2710) As Ordered (09:23)
[2017-12-01] MEDS ORDERED: GLYCOPYRROLATE INJ 0.2 MG/ML 2 ML VIAL As Ordered (09:23)
[2017-12-01] MEDS ORDERED: dexameTHASONE 4 MG/ML 1ML VIAL (J1100) As Ordered (09:23)
[2017-12-01] MEDS ORDERED: KETOROLAC 60 MG/2 ML VIAL (J1885) As Ordered (09:23)
[2017-12-01] MEDS: BUPIVACAINE HCL 0.25% 30 ML VIAL As Ordered (10:38)
[2017-12-01] MEDS ORDERED: MEPERIDINE INJ 25 MG/ML VIAL (J2175) IV (11:00)
[2017-12-01] MEDS ORDERED: NS 1,000 ML IV (11:00)
[2017-12-01] MEDS ORDERED: MORPHINE 2 MG/ML 1ML SYRINGE IV (11:00)
[2017-12-01] MEDS ORDERED: PERCOCET 5MG/325MG TAB PO (11:00)
[2017-12-01] MEDS ORDERED: METOCLOPRAMIDE INJ 10MG/2ML VIAL (J2765) IV (11:00)
[2017-12-01] MEDS ORDERED: ONDANSETRON 4MG/2ML VIAL (J2405) IV (11:00)
[2017-12-01] MEDS ORDERED: fentaNYL 100 MCG/2 ML INJECTION (J3010) IV (11:00)
[2017-12-01] MEDS: NORCO, ANEXSIA 5/325MG TABLET (HYDROcodone/ACETAMINOPHEN) PO (11:47)
[2017-12-01] MEDS ORDERED: KETOROLAC 30 MG/ML VIAL (J1885) IV (16:00)
== END 2017-12-01 13:17 | disposition home or self-care (01) ==
LOC: M SDC 06:19
DX: K40.90 Unilateral inguinal hernia, without obstruction or gangrene, not specified as recurrent (principal); E78.00 Pure hypercholesterolemia, unspecified; F41.9 Anxiety disorder, unspecified; M12.9 Arthropathy, unspecified; M54.9 Dorsalgia, unspecified; G89.29 Other chronic pain; F43.10 Post-traumatic stress disorder, unspecified; Z88.8 Allergy status to other drugs, medicaments and biological substances; Z79.899 Other long term (current) drug therapy; Z90.710 Acquired absence of both cervix and uterus
CPT/HCPCS: 49650

== ENCOUNTER 2017-12-18 17:36 | Observation (INO) | payer OTHER ==
[2017-12-18] MEDS: NS 1,000 ML IV (19:00)
[2017-12-18] MEDS: ONDANSETRON 4MG/2ML VIAL (J2405) IV (19:00)
[2017-12-18] MEDS: MORPHINE 4 MG/ML 1ML SYRINGE IV ×2 (20:18→22:33)
[2017-12-18 20:31] LABS: BASO % 0.5 % (0.0-1.0); EOS # 0.3 10^3/uL (0.0-0.50); EOS % 5.3 % (0.0-3.0); HEMATOCRIT 37.4 % (36.0-47.0); HEMOGLOBIN 12.6 g/dl (12.0-16.0); IMMATURE GRANULOCYTE % 0.3 % (0-0); LYMPH # 1.9 10^3/uL (1.5-4.5); LYMPH % 30.3 % (24.0-44.0); MEAN CORPUSCULAR HEMOGLOBIN 29.7 pg (27.0-33.0); MEAN CORPUSCULAR HGB CONC 33.7 g/dl (32.0-36.5); MEAN CORPUSCULAR VOLUME 88.2 fl (80.0-96.0); MONO # 0.4 10^3/uL (0.0-0.8); MONO % 6.8 % (0.0-5.0); NEUTROPHILS # 3.5 10^3/uL (1.8-7.7); NEUTROPHILS % 56.8 % (36.0-66.0); PLATELET COUNT, AUTOMATED 265 10^3/uL (150-450); RED BLOOD COUNT 4.24 10^6/uL (4.00-5.40); RED CELL DISTRIBUTION WIDTH 12.3 % (11.5-14.5); WHITE BLOOD COUNT 6.2 10^3/uL (4.0-10.0)
[2017-12-18 20:59] LABS: ALBUMIN 4.6 GM/DL (3.2-5.2); ALBUMIN/GLOBULIN RATIO 1.44 (1.00-1.93); ALKALINE PHOSPHATASE 94 U/L (45-117); ALT/SGPT 49 U/L (12-78); AMYLASE 43 U/L (25-115); ANION GAP 7 MEQ/L (8-16); AST/SGOT 28 U/L (7-37); BILIRUBIN,DIRECT 0.2 MG/DL (0.0-0.2); BILIRUBIN,TOTAL 0.9 MG/DL (0.2-1.0); BLOOD UREA NITROGEN 13 MG/DL (7-18); CARBON DIOXIDE LEVEL 30 MEQ/L (21-32); CHLORIDE LEVEL 105 MEQ/L (98-107); CPK CREATINE PHOSPHOKINASE 91 U/L (26-192); CREATININE FOR GFR 0.83 MG/DL (0.55-1.02); GLOMERULAR FILTRATION RATE > 60.0 (>58); GLUCOSE, FASTING 90 MG/DL (70-100); LIPASE 141 U/L (73-393); MB/CK RELATIVE INDEX 1.09 (< OR =4); POTASSIUM SERUM 4.1 MEQ/L (3.5-5.1); SODIUM LEVEL 142 MEQ/L (136-145); TOTAL PROTEIN 7.8 GM/DL (6.4-8.2); TROPONIN I < 0.02 NG/ML (< 0.10)
[2017-12-18 21:01] LABS: KETONE, URINE AUTO RFX NEGATIVE (NEGATIVE); LEUKOCYTE ESTERASE UR AUTO RFX NEGATIVE (NEGATIVE); RBC, URINE AUTO RFX 1 /HPF (0-3); SPECIFIC GRAVITY UR AUTO RFX 1.008 (1.002-1.035); SQUAM EPITHELIAL CELL UR AURFX 0 /HPF (0-6); WBC, URINE AUTO RFX 0 /HPF (0-3)
[2017-12-18 21:03] LABS: NITRITE, URINE AUTO RFX POSITIVE (NEGATIVE)
[2017-12-18] MEDS ORDERED: ISOVUE-370 76% 100ML VIAL (Q9967) As Ordered (21:49)
[2017-12-19] MEDS: NORCO, ANEXSIA 5/325MG TABLET (HYDROcodone/ACETAMINOPHEN) PO ×2 (01:57→08:24)
[2017-12-19] MEDS ORDERED: ONDANSETRON 4MG/2ML VIAL (J2405) IV (02:00)
[2017-12-19] MEDS: KETOROLAC 30 MG/ML VIAL (J1885) IV (04:34)
[2017-12-19] MEDS: MORPHINE 2 MG/ML 1ML SYRINGE IV (07:36)
== END 2017-12-19 10:30 | disposition home or self-care (01) ==
LOC: M PED 12-19 02:05 → M ED 17:36 → M ED INP 23:41
DX: L76.32 Postprocedural hematoma of skin and subcutaneous tissue following other procedure (principal); R10.32 Left lower quadrant pain; E78.5 Hyperlipidemia, unspecified; F41.9 Anxiety disorder, unspecified; Z88.8 Allergy status to other drugs, medicaments and biological substances; Z79.899 Other long term (current) drug therapy
CPT/HCPCS: 96375

== ENCOUNTER → 2017-12-18 | Outpatient (REF) | payer OTHER ==
[2017-12-18 13:42] LABS: APPEARANCE, URINE CLEAR (CLEAR); BACTERIA, URINE AUTO NEGATIVE (NEGATIVE); BILIRUBIN, URINE AUTO NEGATIVE (NEGATIVE); BLOOD, URINE BLOOD NEGATIVE (NEGATIVE); COLOR, URINE YELLOW (YELLOW); GLUCOSE, URINE (UA) AUTO NEGATIVE (NEGATIVE); KETONE, URINE AUTO NEGATIVE (NEGATIVE); LEUKOCYTE ESTERASE, URINE AUTO NEGATIVE (NEGATIVE); MUCUS, URINE SMALL (NEGATIVE); NITRITE, URINE AUTO NEGATIVE (NEGATIVE); PROTEIN, URINE AUTO NEGATIVE (NEGATIVE); RBC, URINE AUTO 0 /HPF (0-3); SPECIFIC GRAVITY URINE AUTO 1.011 (1.002-1.035); SQUAMOUS EPITHELIAL CELL UR AU 0 /HPF (0-6); UROBILINOGEN, URINE AUTO 0.2 mg/dL (0.0-2.0); WBC, URINE AUTO 0 /HPF (0-3)
== END ==
LOC: M LAB REF 12:26
DX: N39.0 Urinary tract infection, site not specified (principal)

== ENCOUNTER 2017-12-28 22:45 | Emergency (ER) | payer OTHER ==
[2017-12-29 00:33] LABS: KETONE, URINE AUTO RFX NEGATIVE (NEGATIVE); LEUKOCYTE ESTERASE UR AUTO RFX NEGATIVE (NEGATIVE); NITRITE, URINE AUTO RFX NEGATIVE (NEGATIVE); RBC, URINE AUTO RFX 1 /HPF (0-3); SPECIFIC GRAVITY UR AUTO RFX 1.008 (1.002-1.035); SQUAM EPITHELIAL CELL UR AURFX 0 /HPF (0-6); WBC, URINE AUTO RFX 0 /HPF (0-3)
[2017-12-29] MEDS: NS 1,000 ML IV (05:45)
[2017-12-29] MEDS: ONDANSETRON 4MG/2ML VIAL (J2405) IV (05:45)
[2017-12-29 06:03] LABS: BASO % 0.4 % (0.0-1.0); EOS # 0.2 10^3/uL (0.0-0.50); HEMATOCRIT 37.3 % (36.0-47.0); HEMOGLOBIN 12.5 g/dl (12.0-16.0); IMMATURE GRANULOCYTE % 0.2 % (0-0); LYMPH # 1.6 10^3/uL (1.5-4.5); MEAN CORPUSCULAR HEMOGLOBIN 29.3 pg (27.0-33.0); MEAN CORPUSCULAR HGB CONC 33.5 g/dl (32.0-36.5); MEAN CORPUSCULAR VOLUME 87.4 fl (80.0-96.0); MONO # 0.4 10^3/uL (0.0-0.8); MONO % 6.4 % (0.0-5.0); NEUTROPHILS # 3.2 10^3/uL (1.8-7.7); PLATELET COUNT, AUTOMATED 248 10^3/uL (150-450); RED BLOOD COUNT 4.27 10^6/uL (4.00-5.40); RED CELL DISTRIBUTION WIDTH 12.1 % (11.5-14.5); WHITE BLOOD COUNT 5.5 10^3/uL (4.0-10.0)
[2017-12-29] MEDS: MORPHINE 4 MG/ML 1ML VIAL IV ×2 (06:03→08:18)
[2017-12-29 06:19] LABS: INR 0.98; PROTHROMBIN TIME 13.1 SECONDS (12.4-14.5)
[2017-12-29 06:20] LABS: PARTIAL THROMBOPLASTIN TIME 30.8 SECONDS (26.8-37.9)
[2017-12-29 06:22] LABS: LACTIC ACID SEPSIS PROTOCOL 1.3 MMOL/L (0.4-2.0)
[2017-12-29 06:26] LABS: ALBUMIN 4.3 GM/DL (3.2-5.2); ALBUMIN/GLOBULIN RATIO 1.34 (1.00-1.93); ALKALINE PHOSPHATASE 93 U/L (45-117); ALT/SGPT 47 U/L (12-78); ANION GAP 8 MEQ/L (8-16); AST/SGOT 30 U/L (7-37); BILIRUBIN,DIRECT 0.1 MG/DL (0.0-0.2); BILIRUBIN,TOTAL 0.6 MG/DL (0.2-1.0); BLOOD UREA NITROGEN 15 MG/DL (7-18); CALCIUM LEVEL 9.3 MG/DL (8.5-10.1); CARBON DIOXIDE LEVEL 28 MEQ/L (21-32); CHLORIDE LEVEL 105 MEQ/L (98-107); CREATININE FOR GFR 0.84 MG/DL (0.55-1.30); GLOMERULAR FILTRATION RATE > 60.0 (>58); GLUCOSE, FASTING 119 MG/DL (70-100); LIPASE 163 U/L (73-393); POTASSIUM SERUM 4.2 MEQ/L (3.5-5.1); SODIUM LEVEL 141 MEQ/L (136-145); TOTAL PROTEIN 7.5 GM/DL (6.4-8.2)
[2017-12-29] MEDS ORDERED: ISOVUE-370 76% 100ML VIAL (Q9967) As Ordered (06:41)
[2017-12-29] MEDS: KETOROLAC 30 MG/ML VIAL (J1885) IV (07:32)
== END 2017-12-29 11:06 | disposition home or self-care (01) ==
LOC: M ED 22:45
DX: G89.4 Chronic pain syndrome (principal); R10.30 Lower abdominal pain, unspecified; F99 Mental disorder, not otherwise specified; Z79.899 Other long term (current) drug therapy; Z88.8 Allergy status to other drugs, medicaments and biological substances
CPT/HCPCS: J2405

== ENCOUNTER → 2018-01-13 | Outpatient (CLI) | payer OTHER ==
[2018-01-13 17:49] LABS: ALBUMIN 4.2 GM/DL (3.2-5.2); ALBUMIN/GLOBULIN RATIO 1.35 (1.00-1.93); ALKALINE PHOSPHATASE 75 U/L (45-117); ALT/SGPT 19 U/L (12-78); ANION GAP 5 MEQ/L (8-16); AST/SGOT 11 U/L (7-37); BILIRUBIN,TOTAL 0.9 MG/DL (0.2-1.0); BLOOD UREA NITROGEN 18 MG/DL (7-18); CARBON DIOXIDE LEVEL 33 MEQ/L (21-32); CHLORIDE LEVEL 105 MEQ/L (98-107); CHOLESTEROL LEVEL 157 MG/DL (<200); CHOLESTEROL RISK RATIO 1.938 (<5); GLOMERULAR FILTRATION RATE > 60.0 (>58); GLUCOSE, FASTING 78 MG/DL (70-100); HDL CHOLESTEROL 81 MG/DL (>40); LDL CHOLESTEROL 50.4 MG/DL (<100); NON-HDL-C 76 MG/DL; SODIUM LEVEL 143 MEQ/L (136-145); THYROID STIMULATING HORMONE 0.739 uIU/ML (0.358-3.740); TOTAL PROTEIN 7.3 GM/DL (6.4-8.2); TRIGLYCERIDES LEVEL 128 MG/DL (<150)
[2018-01-13 17:51] LABS: TOTAL 25(OH) VITAMIN D 19.8 NG/ML (30.0-100.0)
[2018-01-13 18:37] LABS: BASO % 0.5 % (0.0-1.0); EOS # 0.3 10^3/uL (0.0-0.50); EOS % 3.9 % (0.0-3.0); HEMATOCRIT 39.4 % (36.0-47.0); HEMOGLOBIN 12.7 g/dl (12.0-16.0); IMMATURE GRANULOCYTE % 0.5 % (0-3.0); LYMPH # 2.5 10^3/uL (1.5-4.5); LYMPH % 39.2 % (24.0-44.0); MEAN CORPUSCULAR HEMOGLOBIN 29.7 pg (27.0-33.0); MEAN CORPUSCULAR HGB CONC 32.2 g/dl (32.0-36.5); MEAN CORPUSCULAR VOLUME 92.3 fl (80.0-96.0); MONO # 0.5 10^3/uL (0.0-0.8); MONO % 7.3 % (0.0-5.0); NEUTROPHILS # 3.2 10^3/uL (1.8-7.7); NEUTROPHILS % 48.6 % (36.0-66.0); PLATELET COUNT, AUTOMATED 237 10^3/uL (150-450); RED BLOOD COUNT 4.27 10^6/uL (4.00-5.40); RED CELL DISTRIBUTION WIDTH 12.8 % (11.5-14.5); WHITE BLOOD COUNT 6.5 10^3/uL (4.0-10.0)
[2018-01-15 14:13] LABS: TISSUE TRANSGLUTAMINASE IgA <2 U/mL (0-3)
== END ==
LOC: M LRY 10:55
DX: Z13.0 Encounter for screening for diseases of the blood and blood-forming organs and certain disorders involving the immune mechanism (principal); F41.1 Generalized anxiety disorder; M54.2 Cervicalgia; R19.7 Diarrhea, unspecified; E78.2 Mixed hyperlipidemia
CPT/HCPCS: 84443

== ENCOUNTER → 2018-02-04 | Outpatient (CLI) | payer OTHER ==
[2018-02-04 15:36] LABS: C REACTIVE PROTEIN QUANTITATIV < 0.30 MG/DL (0.00-0.30); RHEUMATOID FACTOR QUANT < 10.0 IU/ML (0-15.0)
[2018-02-04 15:36] LABS: URIC ACID 4.6 MG/DL (2.6-6.0)
[2018-02-04 15:45] LABS: TOTAL 25(OH) VITAMIN D 27.8 NG/ML (30.0-100.0)
[2018-02-04 17:08] LABS: ERYTHROCYTE SEDIMENTATION RATE 3 mm/hr (0-20)
[2018-02-08 00:06] LABS: CYCLIC CITRULLINATED PEPTIDE 3 units (0-19)
[2018-02-08 00:06] LABS: ANTINUCLEAR ANTIBODIES DIRECT Negative (Negative); Lyme Disease IgG/IgM Antibodie <0.91 ISR (0.00-0.90); Lyme Disease IgM Ab Quantitati <0.80 index (0.00-0.79); TISSUE TRANSGLUTAMINASE IgA <2 U/mL (0-3); TISSUE TRANSGLUTAMINASE IgG 2 U/mL (0-5)
== END ==
LOC: M RAD 14:31
DX: M79.605 Pain in left leg (principal)

== ENCOUNTER 2018-02-08 14:08 | Emergency (ER) | payer OTHER ==
[2018-02-08] MEDS: methylPREDNISolone INJ 125 MG/2 ML VIAL (J2930) IM (17:15)
[2018-02-08] MEDS: MORPHINE 4 MG/ML 1ML VIAL (J2270) IM (17:24)
== END 2018-02-08 17:40 | disposition home or self-care (01) ==
LOC: M ED 14:08
DX: M54.32 Sciatica, left side (principal); G89.29 Other chronic pain; E78.00 Pure hypercholesterolemia, unspecified; F41.9 Anxiety disorder, unspecified; F32.9 Major depressive disorder, single episode, unspecified; Z79.899 Other long term (current) drug therapy; Z88.8 Allergy status to other drugs, medicaments and biological substances
CPT/HCPCS: J2270

== ENCOUNTER 2018-02-19 10:49 | Emergency (ER) | payer OTHER | END 2018-02-19 13:29 | disposition home or self-care (01) | LOC: M ED 10:49 | DX: R10.32 Left lower quadrant pain (principal); M25.562 Pain in left knee; K40.90 Unilateral inguinal hernia, without obstruction or gangrene, not specified as recurrent; E78.00 Pure hypercholesterolemia, unspecified; N80.9 Endometriosis, unspecified; F41.9 Anxiety disorder, unspecified; F33.9 Major depressive disorder, recurrent, unspecified; F43.10 Post-traumatic stress disorder, unspecified; Z79.899 Other long term (current) drug therapy; Z88.8 Allergy status to other drugs, medicaments and biological substances | CPT/HCPCS: 76857 ==

== ENCOUNTER 2018-03-08 11:39 | Emergency (ER) | payer OTHER | END 2018-03-08 14:20 | disposition home or self-care (01) | LOC: M ED 11:39 | DX: S20.212A Contusion of left front wall of thorax, initial encounter (principal); S50.02XA Contusion of left elbow, initial encounter; X58.XXXA Exposure to other specified factors, initial encounter; Y92.410 Unspecified street and highway as the place of occurrence of the external cause; F43.10 Post-traumatic stress disorder, unspecified; E78.9 Disorder of lipoprotein metabolism, unspecified; Z79.890 Hormone replacement therapy; Z79.899 Other long term (current) drug therapy; Z88.8 Allergy status to other drugs, medicaments and biological substances | CPT/HCPCS: 71046 ==

== ENCOUNTER 2018-03-12 18:25 | Emergency (ER) | payer OTHER ==
[2018-03-12] MEDS: NORCO, ANEXSIA 5/325MG TABLET (HYDROcodone/ACETAMINOPHEN) PO (20:00)
== END 2018-03-12 20:41 | disposition home or self-care (01) ==
LOC: M ED 18:25
DX: S23.41XA Sprain of ribs, initial encounter (principal); S43.402A Unspecified sprain of left shoulder joint, initial encounter; W00.9XXA Unspecified fall due to ice and snow, initial encounter; Y92.89 Other specified places as the place of occurrence of the external cause; Y93.K1 Activity, walking an animal; Y99.9 Unspecified external cause status; M54.9 Dorsalgia, unspecified; F41.9 Anxiety disorder, unspecified; F32.9 Major depressive disorder, single episode, unspecified; F43.10 Post-traumatic stress disorder, unspecified; Z79.899 Other long term (current) drug therapy; Z88.8 Allergy status to other drugs, medicaments and biological substances
CPT/HCPCS: 71101

== ENCOUNTER → 2018-06-17 | Outpatient (CLI) | payer OTHER | LOC: M RAD 07:42 | DX: K21.9 Gastro-esophageal reflux disease without esophagitis (principal) | CPT/HCPCS: 76700 ==

== ENCOUNTER 2018-06-25 09:22 | Day surgery (SDC) | payer OTHER ==
[~2018-06-25 09:22] MED LIST changes: -AMIT25TA; -BENT20TA PO; -COLA100C5 PO; -CYCL10TA PO; -Estrogen TOP; -GABA-282 PO; -IBUP200C10 PO; +LIDOCAINE 2% INJ 100 MG/5 ML SDV (FOR ANES.) As Ordered; -LIPITOR PO; -MEDR5TAB3 PO; -MOBI4TAB PO; -NAPR500T PO; -NORCOTAB PO; -OXYC1TAB23 PO; -PRED20TA PO; -PREG50CA; +PROPOFOL 200 MG/20 ML VIAL As Ordered; -ROBA500T PO; -TRAM50TA2 PO; -ZOFR4TAB3 PO
[2018-06-25] MEDS: NS 1,000 ML IV (09:36)
[2018-06-25] MEDS ORDERED: fentaNYL 100 MCG/2 ML INJECTION (J3010) As Ordered (10:05)
== END 2018-06-25 11:35 | disposition home or self-care (01) ==
LOC: M OPP 09:22
DX: K59.00 Constipation, unspecified (principal); R11.10 Vomiting, unspecified; K64.8 Other hemorrhoids; R10.13 Epigastric pain; K21.9 Gastro-esophageal reflux disease without esophagitis; K31.89 Other diseases of stomach and duodenum; E78.5 Hyperlipidemia, unspecified; M19.90 Unspecified osteoarthritis, unspecified site; M54.89 Other dorsalgia; F41.9 Anxiety disorder, unspecified; F32.9 Major depressive disorder, single episode, unspecified; F43.10 Post-traumatic stress disorder, unspecified; N80.9 Endometriosis, unspecified; Z88.8 Allergy status to other drugs, medicaments and biological substances; Z79.899 Other long term (current) drug therapy
CPT/HCPCS: 45378

== ENCOUNTER 2018-10-18 20:20 | Emergency (ER) | payer OTHER ==
[2018-10-18] MEDS: KETOROLAC 30 MG/ML VIAL (J1885) IV ×2 (21:00)
[2018-10-18] MEDS: NS 1,000 ML IV ×2 (21:09)
[2018-10-18 21:10] LABS: BASO % 0.3 % (0.0-1.0); EOS # 0.3 10^3/uL (0.0-0.50); EOS % 3.5 % (0.0-3.0); HEMATOCRIT 37.1 % (36.0-47.0); HEMOGLOBIN 12.6 g/dl (12.0-15.5); IMMATURE GRANULOCYTE % 0.4 % (0-3.0); LYMPH # 2.1 10^3/uL (1.5-4.5); MEAN CORPUSCULAR HEMOGLOBIN 30.1 pg (27.0-33.0); MEAN CORPUSCULAR VOLUME 88.8 fl (80.0-96.0); MONO # 0.4 10^3/uL (0.0-0.8); MONO % 5.2 % (0.0-5.0); NEUTROPHILS # 4.5 10^3/uL (1.8-7.7); NEUTROPHILS % 61.6 % (36.0-66.0); PLATELET COUNT, AUTOMATED 231 10^3/uL (150-450); RED BLOOD COUNT 4.18 10^6/uL (4.00-5.40); RED CELL DISTRIBUTION WIDTH 11.8 % (11.5-14.5); WHITE BLOOD COUNT 7.2 10^3/uL (4.0-10.0)
[2018-10-18 21:21] LABS: INR 0.96; PARTIAL THROMBOPLASTIN TIME 27.6 SECONDS (25.4-37.6); PROTHROMBIN TIME 12.9 SECONDS (12.1-14.4)
[2018-10-18 21:39] LABS: ANION GAP 10 MEQ/L (8-16); BLOOD UREA NITROGEN 14 MG/DL (7-18); CALCIUM LEVEL 8.5 MG/DL (8.5-10.1); CARBON DIOXIDE LEVEL 25 MEQ/L (21-32); CHLORIDE LEVEL 109 MEQ/L (98-107); CK-MB VALUE MASS < 1.0 NG/ML (<3.6); CPK CREATINE PHOSPHOKINASE 62 U/L (26-192); CREATININE FOR GFR 0.94 MG/DL (0.55-1.30); GLOMERULAR FILTRATION RATE > 60.0 (>58); GLUCOSE, FASTING 102 MG/DL (70-100); MB/CK RELATIVE INDEX 1.61 (< OR =4); POTASSIUM SERUM 4.1 MEQ/L (3.5-5.1); SODIUM LEVEL 144 MEQ/L (136-145); TROPONIN I < 0.02 NG/ML (< 0.10)
[2018-10-18] MEDS ORDERED: ISOVUE-370 76% 100ML VIAL (Q9967) As Ordered ×2 (22:00)
== END 2018-10-19 00:19 | disposition home or self-care (01) ==
LOC: M ED 10-19 00:19
DX: R07.1 Chest pain on breathing (principal); F41.9 Anxiety disorder, unspecified; G89.29 Other chronic pain; M54.9 Dorsalgia, unspecified
CPT/HCPCS: Q9967

== ENCOUNTER 2018-11-14 07:42 | Emergency (ER) | payer OTHER ==
[~2018-11-14] VITALS: Ht 170.2 cm; Wt 81.8 kg
[~2018-11-14 07:42] MED LIST changes: +AMIT25TA; +ATOR40TA75 PO; +ATOR80TA59 PO; +BENT20TA PO; +CELE1CAP4 PO; +CLAR10CA3 PO; +COLA100C5 PO; +CYCL10TA PO; +DICL1GEL3 TD; +DULO30CA PO; +ESTR62CR PV; +Estrogen TOP; +GABA-843 PO; +HYDR-2807 PO; +HYDR-3716 PO; +HYDR50TA70 PO; +IBUP200C25 PO; +KETO10TAB PO; -LIDOCAINE 2% INJ 100 MG/5 ML SDV (FOR ANES.) As Ordered; +LIPI20TA PO; +LIPITOR PO; +LUNE3TAB36 PO; +LYRI75CA PO; +MACR100C42 PO; +MEDR5TAB3 PO; +MIRA3350 PO; +MOBI4TAB PO; +NAPR-49 PO; +NITR100C2; +NORCOTAB PO; +NORT50CA PO; +OXYC1TAB23 PO; +PERC5TAB12 PO; +PHEN-501; +PHEN-501 PO; +PRED20TA PO; +PREG100CA PO; +PREG50CA; -PROPOFOL 200 MG/20 ML VIAL As Ordered; +PROT1TAB2 PO; +RANI150T PO; +ROBA500T PO; +ROBA750T4 PO; +SENN1TAB2 PO; +SUCR1TAB56 PO; +TRAM50TA2 PO; +TRAZ-160 PO; +ULTR50TA8 PO; +VITA1CAP2 PO; +VOLT1GEL15 TD; +ZOFR4TAB14 PO
[2018-11-14] MEDS ORDERED: MOTR200T44 PO (07:49)
--- NOTE | 2018-11-14 08:49 | REP ---
Clinical: Acute headache . Comparison: None . Findings: The ventricles, sulci, and cisterns are normal in position and appearance. Delatorre-white differentiation is maintained. No acute intracranial hemorrhage, mass/mass effect, pathology or trauma/injury. No evidence for acute infarction. No extra-axial fluid collection. Calvarium is intact. Paranasal sinuses and mastoid air cells are clear. Impression: Normal noncontrast head CT. No evidence for acute intracranial pathology or trauma/injury. Electronically Signed by Ramon Escobedo MD 11/14/2018 08:40 A
--- NOTE | 2018-11-14 08:51 | REP ---
Clinical: Neck pain extending to the right upper extremity . Technique: Axial noncontrast images from the skull base to the thoracic inlet with coronal and sagittal re-formations Findings: Normal alignment and lordosis is maintained. The patient appears to be status post anterior fixation at C5-6. Multilevel age-related changes appreciated. Cervical vertebral bodies including transverse processes and spinous processes are intact and there is no evidence for acute fracture / compression injury or subluxation. Spinal canal is patent. Posterior elements are intact. Paravertebral soft tissues are normal. Impression: Anterior fixation at C5-6. Age-related changes. No evidence for acute pathology or trauma/injury. Electronically Signed by Ramon Escobedo MD 11/14/2018 08:42 A
[2018-11-14] MEDS ORDERED: NS 1,000 ML IV ONE (09:00)
[2018-11-14] MEDS ORDERED: diphenhydrAMINE INJ 50MG/ML VIAL (J1200) IV ONE (09:00)
[2018-11-14] MEDS ORDERED: KETOROLAC 30 MG/ML VIAL (J1885) IV ONE (09:00)
[2018-11-14] MEDS ORDERED: METOCLOPRAMIDE INJ 10MG/2ML VIAL (J2765) IV ONE (09:00)
[2018-11-14 09:58] VITALS: BP 114/79
== END 2018-11-14 10:11 | disposition home or self-care (01) ==
LOC: M ED 07:42
DX: G43.909 Migraine, unspecified, not intractable, without status migrainosus (principal); G89.29 Other chronic pain; M25.511 Pain in right shoulder; F33.9 Major depressive disorder, recurrent, unspecified; F41.9 Anxiety disorder, unspecified; F43.10 Post-traumatic stress disorder, unspecified; E78.5 Hyperlipidemia, unspecified; N80.9 Endometriosis, unspecified; Z79.899 Other long term (current) drug therapy; Z88.8 Allergy status to other drugs, medicaments and biological substances
CPT/HCPCS: 70450; 72125; 96374; 96375; 99284; J1200; J1885; J2765

== ENCOUNTER 2018-12-31 16:45 | Emergency (ER) | payer OTHER ==
[~2018-12-31] VITALS: Ht 170.2 cm; Wt 88.2 kg
[~2018-12-31 16:45] MED LIST changes: +MOTR200T44 PO; -NAPR-49 PO; +NAPR-50 PO
[2018-12-31 18:05] VITALS: BP 115/83
--- NOTE | 2018-12-31 18:48 | REP ---
PORTABLE RIGHT SHOULDER: Single portable view of the right shoulder is performed. There is no evidence of radiopaque foreign body and in particular there is no evidence of any catheter or piece of catheter in the visualized right shoulder and chest. There is mild linear fibroatelectatic change in the right lung base. The visualized osseous structures are unremarkable. Electronically Signed by Redd Delatorre MD 12/31/2018 07:46 P
== END 2018-12-31 18:13 | disposition home or self-care (01) ==
LOC: M ED 16:45
DX: G89.29 Other chronic pain (principal); M79.621 Pain in right upper arm; E78.5 Hyperlipidemia, unspecified; Z79.899 Other long term (current) drug therapy; Z88.8 Allergy status to other drugs, medicaments and biological substances

== ENCOUNTER 2019-01-21 05:18 | Emergency (ER) | payer OTHER ==
[~2019-01-21] VITALS: Ht 170.2 cm; Wt 86.4 kg
[2019-01-21] MEDS ORDERED: GABA-845 PO ×2 (05:28)
[2019-01-21] MEDS ORDERED: LODI400T PO (05:28)
[2019-01-21 06:20] LABS: BASO % 0.5 % (0.0-1.0); EOS # 0.4 10^3/uL (0.0-0.50); LYMPH # 1.9 10^3/uL (1.5-4.5); LYMPH % 31.9 % (24.0-44.0); MEAN CORPUSCULAR HGB CONC 33.3 g/dl (32.0-36.5); MEAN CORPUSCULAR VOLUME 90.1 fl (80.0-96.0); MONO # 0.4 10^3/uL (0.0-0.8); MONO % 6.3 % (0.0-5.0); NEUTROPHILS # 3.3 10^3/uL (1.8-7.7); PLATELET COUNT, AUTOMATED 237 10^3/uL (150-450); RED BLOOD COUNT 4.66 10^6/uL (4.00-5.40)
--- NOTE | 2019-01-21 06:36 | REPVR ---
EXAM: CT Head Without Contrast EXAM DATE/TIME: 01/21/2019 6:10 AM CLINICAL HISTORY: 43 years old, female; Pain; Headache; Headache not specified; Additional info: Midline neck pain radiating to the shoulder; Headache TECHNIQUE: Axial computed tomography images of the head/brain without contrast. All CT scans at this facility use at least one of these dose optimization techniques: automated exposure control; mA and/or kV adjustment per patient size (includes targeted exams where dose is matched to clinical indication); or iterative reconstruction. COMPARISON: CT Head without contrast 11/14/2018 8:14 AM FINDINGS: Brain: Normal. No hemorrhage. No significant white matter disease. No edema. Ventricles: Normal. No ventriculomegaly. Bones/joints: Unremarkable. No acute fracture. Sinuses: There is partially imaged bilateral maxillary sinuses either mucosal thickening or mucous retention cysts. Mastoid air cells: Visualized mastoid air cells are unremarkable. No mastoid effusion. Soft tissues: Unremarkable. IMPRESSION: 1. No CT evidence of intracranial hemorrhage, mass effect or midline shift. 2. Partially imaged either mucous retention cysts or mucosal thickening in the maxillary sinuses. Electronically signed by: Roberto Garcia On 01/21/2019 06:36:00 AM
--- NOTE | 2019-01-21 06:41 | REPVR ---
EXAM: CT Cervical Spine Without Contrast EXAM DATE/TIME: 01/21/2019 6:10 AM CLINICAL HISTORY: 43 years old, female; Pain; Neck pain; Prior surgery; Surgery date: 6+ months; Surgery type: Hardware; Additional info: Midline neck pain radiating to the shoulder; Headache TECHNIQUE: Axial computed tomography images of the cervical spine without intravenous contrast. All CT scans at this facility use at least one of these dose optimization techniques: automated exposure control; mA and/or kV adjustment per patient size (includes targeted exams where dose is matched to clinical indication); or iterative reconstruction. Coronal and sagittal reformatted images were created and reviewed. COMPARISON: CT Spine,cervical w/o contrast 11/14/2018 8:14 AM FINDINGS: Vertebrae: The patient is status post cervical spine surgery via anterior approach with intact plates and screws at C5 and C6. C1-C2 degenerative change is seen. Discs/Spinal canal/Neural foramina: There is mild posterior disc osteophyte complex formations at C5-C6 and C6-C7 more prominent on the left mildly narrowing the neural foramina. There is C4-C5 left paracentral disc bulge best appreciated on sagittal images series 304 image 39. There is minimal left C3-C4 left paracentral disc bulge. Soft tissues: Unremarkable. Lungs: Lung apices are normal. IMPRESSION: 1. Minimal left C3-C4 and mild left C4-C5 paracentral disc bulge. 2. Status post anterior fixation of C5-C6 with intact surgical plate and screws. Mild left posterior disc osteophyte complex formation at C5-C6 and C6-C7 more prominent on the left mildly narrowing the neural foramina. Electronically signed by: Roberto Garcia On 01/21/2019 06:41:07 AM
[2019-01-21 06:50] LABS: ERYTHROCYTE SEDIMENTATION RATE 8 mm/hr (0-20)
[2019-01-21 06:58] LABS: BLOOD UREA NITROGEN 18 MG/DL (7-18); CALCIUM LEVEL 9.1 MG/DL (8.5-10.1); CARBON DIOXIDE LEVEL 29 MEQ/L (21-32); CHLORIDE LEVEL 108 MEQ/L (98-107); CK-MB VALUE MASS < 1.0 NG/ML (<3.6); CPK CREATINE PHOSPHOKINASE 76 U/L (26-192); CREATININE FOR GFR 0.92 MG/DL (0.55-1.30); FREE T4 0.77 NG/DL (0.76-1.46); GLOMERULAR FILTRATION RATE > 60.0 (>58); GLUCOSE, FASTING 102 MG/DL (70-100); MB/CK RELATIVE INDEX 1.32 (< OR =4); POTASSIUM SERUM 4.3 MEQ/L (3.5-5.1); SODIUM LEVEL 144 MEQ/L (136-145); TROPONIN I < 0.02 NG/ML (< 0.10)
[2019-01-21] MEDS ORDERED: KETOROLAC 30 MG/ML VIAL (J1885) IV ONE (07:15)
[2019-01-21] MEDS ORDERED: AUGM875T28 PO (07:21)
[2019-01-21] MEDS ORDERED: IBUP-1022 PO (08:11)
[2019-01-21 08:25] VITALS: BP 123/82
--- NOTE | 2019-01-21 08:35 | REP ---
Clinical: Chest pain . Comparison: 03/08/2018 . Technique: Portable AP Findings: The mediastinum and cardiac silhouette are normal. The lung badillo are clear and without acute consolidation, effusion, or pneumothorax. The skeletal structures are intact and normal. Impression: 1. No acute cardiopulmonary process. Electronically Signed by Ramon Escobedo MD 01/21/2019 08:27 A
--- NOTE | 2019-01-22 17:28 | ECGEPIP ---
Stationary ECG Study [facility] - ED Test Date: 2019-01-21 Pat Name: LAVINIA FOSTER Department: Room: - Gender: F [employer] Other Ranks: mary : 1975 Requested By: IRA Nuñez Order Number: [id number] Reading MD: Rai Batista Measurements Intervals [place] Rate: 79 P: 2 UT: 169 QRS: 45 QRSD: 88 T: 46 QT: 390 QTc: 448 Interpretive Statements SINUS RHYTHM LOW QRS VOLTAGE IN PRECORDIAL LEADS NONSPECIFIC ST T WAVE CHANGES DELAYED R WAVE PROGRESSION CW 10/18/18 RATE INCREASED Electronically Signed On 01-22-2019 17:27:54 EST by Rai Batista
== END 2019-01-21 08:26 | disposition home or self-care (01) ==
LOC: M ED 05:18
DX: M50.20 Other cervical disc displacement, unspecified cervical region (principal); M26.629 Arthralgia of temporomandibular joint, unspecified side; H93.19 Tinnitus, unspecified ear
CPT/HCPCS: 70450; 71045; 72125; 80048; 82550; 82553; 84439; 84443; 84484; 85025; 85652; 93005; 93041; 94760; 96374; 99285; J1885

== ENCOUNTER 2019-02-07 10:14 | Emergency (ER) | payer OTHER ==
[~2019-02-07] VITALS: Ht 170.2 cm; Wt 87.4 kg
[~2019-02-07 10:14] MED LIST changes: +AUGM875T28 PO; +GABA-845 PO; +IBUP-1022 PO; +LODI400T PO
[2019-02-07 11:37] LABS: BASO % 0.3 % (0.0-1.0); EOS # 0.2 10^3/uL (0.0-0.50); EOS % 3.5 % (0.0-3.0); HEMOGLOBIN 14.3 g/dl (12.0-15.5); LYMPH # 1.6 10^3/uL (1.5-4.5); MEAN CORPUSCULAR HEMOGLOBIN 30.2 pg (27.0-33.0); MEAN CORPUSCULAR HGB CONC 33.3 g/dl (32.0-36.5); MEAN CORPUSCULAR VOLUME 90.9 fl (80.0-96.0); MONO # 0.3 10^3/uL (0.0-0.8); MONO % 5.6 % (0.0-5.0); NEUTROPHILS # 3.9 10^3/uL (1.8-7.7); NEUTROPHILS % 64.1 % (36.0-66.0); PLATELET COUNT, AUTOMATED 219 10^3/uL (150-450); RED BLOOD COUNT 4.73 10^6/uL (4.00-5.40); WHITE BLOOD COUNT 6.1 10^3/uL (4.0-10.0)
[2019-02-07 12:10] LABS: HCG, SERUM QUALITATIVE NEGATIVE (NEGATIVE)
[2019-02-07 12:14] LABS: ALBUMIN 4.5 GM/DL (3.2-5.2); ALT/SGPT 27 U/L (12-78); BILIRUBIN,DIRECT 0.4 MG/DL (0.0-0.2); BILIRUBIN,TOTAL 1.7 MG/DL (0.2-1.0); BLOOD UREA NITROGEN 21 MG/DL (7-18); CALCIUM LEVEL 8.9 MG/DL (8.5-10.1); CARBON DIOXIDE LEVEL 28 MEQ/L (21-32); CHLORIDE LEVEL 107 MEQ/L (98-107); CREATININE FOR GFR 0.89 MG/DL (0.55-1.30); GLOMERULAR FILTRATION RATE > 60.0 (>58); GLUCOSE, FASTING 101 MG/DL (70-100); LIPASE 204 U/L (73-393); POTASSIUM SERUM 4.4 MEQ/L (3.5-5.1); SODIUM LEVEL 140 MEQ/L (136-145); TOTAL PROTEIN 7.8 GM/DL (6.4-8.2)
[2019-02-07] MEDS ORDERED: ISOVUE-370 76% 125ML VIAL (Q9967 PER ML) As Ordered ONE (12:28)
--- NOTE | 2019-02-07 12:58 | REP ---
RIGHT UPPER QUADRANT ULTRASOUND: Real-time sonographic evaluation of the right upper quadrant performed. The gallbladder demonstrates no evidence of intraluminal sludge or calculi, wall thickening, or pericholecystic fluid. There is no intrahepatic or extrahepatic biliary dilatation, common bile duct measuring 3 mm. Liver and pancreas demonstrate homogeneous echotexture with no gross mass. Right kidney demonstrates no hydronephrosis with a cyst in the upper pole 4.5 cm in maximum diameter. IMPRESSION: Right renal cyst measuring up to 4.5 cm in diameter. Otherwise negative right upper quadrant ultrasound. Electronically Signed by Redd Delatorre MD 02/09/2019 11:41 A
--- NOTE | 2019-02-07 13:52 | REP ---
CT ABDOMEN AND PELVIS WITH IV CONTRAST: TECHNIQUE: Axial contrast enhanced images from the lung bases to the pubic symphysis using 100 mL Isovue 370 intravenous contrast material with multiplanar reformations. Visualized lung bases demonstrate mild fibrotic change. The liver, spleen, adrenals and pancreas are unremarkable. There is a right renal cyst in the upper pole which measures approximately 3.3 cm in diameter. There is no adenopathy. There is no abdominal aortic aneurysm. There is no free air. There is no bowel wall thickening. Large amount of fecal material seen throughout the colon. There is mild free fluid in the pelvis. The urinary bladder is mildly distended and grossly unremarkable. There is no pelvic mass. A small left inguinal hernia and umbilical hernia both contain fat with no evidence of strangulation. IMPRESSION: Large amount of fecal material scattered throughout the colon. No evidence of bowel obstruction or free air. Mild free fluid in the pelvis is nonspecific. Small left inguinal and umbilical hernias contain fat without evidence of strangulation. Right renal cyst. Electronically Signed by Redd Delatorre MD 02/09/2019 11:59 A
[2019-02-07] MEDS ORDERED: MIRA3350 PO (13:59)
[2019-02-07] MEDS ORDERED: KETO2CR TOP (14:01)
[2019-02-07 14:12] VITALS: BP 114/84
--- NOTE | 2019-02-09 12:13 | ED PDOC ---
Post-Departure Follow-Up dr diandra yanes faxed formal report of gb us for fu Rai Neff MD Feb 09, 2019 12:13
== END 2019-02-07 14:13 | disposition home or self-care (01) ==
LOC: M ED 10:14
DX: K59.00 Constipation, unspecified (principal); E78.5 Hyperlipidemia, unspecified; N80.9 Endometriosis, unspecified; M54.9 Dorsalgia, unspecified; F41.9 Anxiety disorder, unspecified; F32.9 Major depressive disorder, single episode, unspecified; F43.10 Post-traumatic stress disorder, unspecified; K40.90 Unilateral inguinal hernia, without obstruction or gangrene, not specified as recurrent; K42.9 Umbilical hernia without obstruction or gangrene; N28.1 Cyst of kidney, acquired; Z79.899 Other long term (current) drug therapy; Z88.8 Allergy status to other drugs, medicaments and biological substances
CPT/HCPCS: 74177; 76705; 80048; 80076; 83690; 84703; 85025; 99284; G0463; Q9967

== ENCOUNTER 2019-02-28 07:55 | Emergency (ER) | payer OTHER ==
[~2019-02-28] VITALS: Ht 170.2 cm; Wt 86.4 kg
[~2019-02-28 07:55] MED LIST changes: -DULO30CA PO; +DULO30CA9 PO; +HYDR-3715 PO; +KETO2CR TOP; -NAPR-50 PO; +NAPR-837 PO; -NORCOTAB PO; -SENN1TAB2 PO; +SENN1TAB40 PO; +VITA-183 PO; -VITA1CAP2 PO
[2019-02-28] MEDS ORDERED: ACETAMINOPHEN (08:04)
[2019-02-28] MEDS ORDERED: OXYCODONE (08:04)
[2019-02-28] MEDS ORDERED: ONDA8TAB7 (08:04)
[2019-02-28] MEDS ORDERED: NS 1,000 ML IV ONE (08:45)
[2019-02-28] MEDS ORDERED: ONDANSETRON 4MG/2ML VIAL (J2405) IV ONE (08:45)
[2019-02-28 09:14] LABS: BASO % 0.6 % (0.0-1.0); EOS # 0.3 10^3/uL (0.0-0.50); EOS % 5.2 % (0.0-3.0); HEMATOCRIT 41.5 % (36.0-47.0); HEMOGLOBIN 13.6 g/dl (12.0-15.5); LYMPH # 2.1 10^3/uL (1.5-4.5); LYMPH % 39.5 % (24.0-44.0); MEAN CORPUSCULAR HEMOGLOBIN 30.2 pg (27.0-33.0); MEAN CORPUSCULAR HGB CONC 32.8 g/dl (32.0-36.5); MONO # 0.4 10^3/uL (0.0-0.8); MONO % 8.1 % (0.0-5.0); NEUTROPHILS # 2.4 10^3/uL (1.8-7.7); NEUTROPHILS % 46.2 % (36.0-66.0); PLATELET COUNT, AUTOMATED 245 10^3/uL (150-450); RED BLOOD COUNT 4.51 10^6/uL (4.00-5.40); WHITE BLOOD COUNT 5.2 10^3/uL (4.0-10.0)
[2019-02-28] MEDS ORDERED: KETOROLAC 30 MG/ML VIAL (J1885) IV ONE (09:15)
[2019-02-28 09:37] LABS: ALBUMIN 4.2 GM/DL (3.2-5.2); ALT/SGPT 18 U/L (12-78); AMYLASE 41 U/L (25-115); BILIRUBIN,DIRECT 0.2 MG/DL (0.0-0.2); BILIRUBIN,TOTAL 0.5 MG/DL (0.2-1.0); BLOOD UREA NITROGEN 16 MG/DL (7-18); CARBON DIOXIDE LEVEL 29 MEQ/L (21-32); CHLORIDE LEVEL 109 MEQ/L (98-107); CREATININE FOR GFR 0.89 MG/DL (0.55-1.30); GLOMERULAR FILTRATION RATE > 60.0 (>58); GLUCOSE, FASTING 96 MG/DL (70-100); LIPASE 109 U/L (73-393); POTASSIUM SERUM 3.7 MEQ/L (3.5-5.1); SODIUM LEVEL 142 MEQ/L (136-145); TOTAL PROTEIN 7.4 GM/DL (6.4-8.2)
--- NOTE | 2019-02-28 10:00 | REP ---
Anterior abdominal wall ultrasound for periumbilical hernia and. Umbilical pain: The patient reportedly has history of an inguinal hernia. Ultrasonography of the anterior abdominal wall in the area pain without and with Valsalva is performed. No anterior abdominal wall hernia is identified. Impression: No periumbilical hernia is identified. Electronically Signed by Redd Garrido MD 02/28/2019 09:52 A
--- NOTE | 2019-02-28 10:03 | REP ---
KUB: Single view. History: Abdomen pain. Findings: Bowel gas pattern is normal with formed stool in the ascending and descending colon. No large or small bowel dilation is seen. Flank stripes and psoas margins are intact. There are phleboliths in the pelvis. No pathologic calcification is seen. No mass or organomegaly noted. Impression: Negative KUB. Electronically Signed by Obey Coon MD 02/28/2019 05:29 P
[2019-02-28 10:34] VITALS: BP 139/85
[2019-02-28] MEDS ORDERED: ONDA4TAB6 PO (10:44)
[2019-02-28] MEDS ORDERED: MAGNESIUM CITRATE 300 ML BTL PO ONE (10:45)
== END 2019-02-28 10:53 | disposition home or self-care (01) ==
LOC: M ED 07:55
DX: R10.9 Unspecified abdominal pain (principal); K59.00 Constipation, unspecified; Z88.8 Allergy status to other drugs, medicaments and biological substances; Z79.899 Other long term (current) drug therapy; Z79.890 Hormone replacement therapy
CPT/HCPCS: 74018; 76705; 80048; 80076; 82150; 83605; 83690; 85025; 96361; 96374; 96375; 99284; J1885; J2405

== ENCOUNTER → 2019-03-17 | Outpatient (CLI) | payer OTHER ==
[~2019-03-17] MED LIST changes: +ACETAMINOPHEN; +ONDA4TAB6 PO; +ONDA8TAB7; +OXYCODONE
--- NOTE | 2019-03-17 16:27 | REPMRS ---
Patient History The patient states she has not had a clinical breast exam in over a year. Patient is nulliparous. Family history of colorectal cancer at age 50 in paternal uncle. Patient had bilateral breast reduction in 2008 [facility] at [facility],. 3D TOMOSYNTHESIS WAS PERFORMED. Digital Mammo Diagnostic Bilateral: March 17, 2019 - Exam #: [id number] Bilateral CC and MLO view(s) were taken. Technologist: Windy Landin, Technologist Prior study comparison: May 27, 2017, bilateral digital mammo screening bilat, performed at [facility]. FINDINGS: The breast tissue is heterogeneously dense. This may lower the sensitivity of mammography. There has been no change in the appearance of the mammogram from the prior studies. There is a moderate amount of residual fibroglandular tissue which is fairly symmetric. There is no interval development of dominant mass, areas of architectural distortion, or clustered microcalcification typical of malignancy. Assessment: BI-RADS/ACR category 1 mammogram. Negative Mammogram. Recommendation Routine screening mammogram in 1 year (for women over age 40). This mammogram was interpreted with the aid of an FDA-approved computer-aided dectection system. Electronically Signed By: Redd Delatorre MD 03/17/19 1331
== END ==
LOC: M RAD 14:06
PROVIDERS: ATTEND Nurse Practitioner Family
DX: N64.4 Mastodynia (principal)
CPT/HCPCS: 77066; G0279

== ENCOUNTER 2019-03-19 03:50 | Emergency (ER) | payer OTHER ==
[~2019-03-19] VITALS: Ht 170.2 cm; Wt 86.4 kg
[2019-03-19 04:37] LABS: BASO % 0.4 % (0.0-1.0); EOS # 0.3 10^3/uL (0.0-0.50); EOS % 5.5 % (0.0-3.0); HEMATOCRIT 40.4 % (36.0-47.0); HEMOGLOBIN 13.8 g/dl (12.0-15.5); LYMPH # 2.2 10^3/uL (1.5-4.5); LYMPH % 39.4 % (24.0-44.0); MEAN CORPUSCULAR HGB CONC 34.2 g/dl (32.0-36.5); MEAN CORPUSCULAR VOLUME 90.8 fl (80.0-96.0); MONO # 0.4 10^3/uL (0.0-0.8); MONO % 6.7 % (0.0-5.0); NEUTROPHILS # 2.7 10^3/uL (1.8-7.7); NEUTROPHILS % 47.8 % (36.0-66.0); PLATELET COUNT, AUTOMATED 213 10^3/uL (150-450); RED BLOOD COUNT 4.45 10^6/uL (4.00-5.40); WHITE BLOOD COUNT 5.7 10^3/uL (4.0-10.0)
[2019-03-19 04:39] LABS: APPEARANCE, URINE CLEAR (CLEAR); BACTERIA, URINE AUTO NEGATIVE (NEGATIVE); BILIRUBIN, URINE AUTO NEGATIVE (NEGATIVE); BLOOD, URINE BLOOD NEGATIVE (NEGATIVE); COLOR, URINE YELLOW (YELLOW); GLUCOSE, URINE (UA) AUTO NEGATIVE (NEGATIVE); KETONE, URINE AUTO NEGATIVE (NEGATIVE); LEUKOCYTE ESTERASE, URINE AUTO NEGATIVE (NEGATIVE); NITRITE, URINE AUTO NEGATIVE (NEGATIVE); PROTEIN, URINE AUTO NEGATIVE (NEGATIVE); RBC, URINE AUTO 1 /HPF (0-3); SPECIFIC GRAVITY URINE AUTO 1.019 (1.002-1.035); SQUAMOUS EPITHELIAL CELL UR AU 0 /HPF (0-6); UROBILINOGEN, URINE AUTO 0.2 mg/dL (0.0-2.0); WBC, URINE AUTO 0 /HPF (0-3)
[2019-03-19 04:59] LABS: ALBUMIN 4.3 GM/DL (3.2-5.2); ALT/SGPT 32 U/L (12-78); BILIRUBIN,DIRECT 0.1 MG/DL (0.0-0.2); BILIRUBIN,TOTAL 0.6 MG/DL (0.2-1.0); BLOOD UREA NITROGEN 21 MG/DL (7-18); CALCIUM LEVEL 8.9 MG/DL (8.5-10.1); CARBON DIOXIDE LEVEL 27 MEQ/L (21-32); CHLORIDE LEVEL 109 MEQ/L (98-107); CREATININE FOR GFR 0.87 MG/DL (0.55-1.30); GLOMERULAR FILTRATION RATE > 60.0 (>58); GLUCOSE, FASTING 101 MG/DL (70-100); LIPASE 157 U/L (73-393); POTASSIUM SERUM 4.1 MEQ/L (3.5-5.1); SODIUM LEVEL 143 MEQ/L (136-145); TOTAL PROTEIN 7.3 GM/DL (6.4-8.2)
[2019-03-19] MEDS ORDERED: ISOVUE-370 76% 100ML VIAL (Q9967) As Ordered ONE (05:09)
[2019-03-19] MEDS ORDERED: KETOROLAC 30 MG/ML VIAL (J1885) IV ONE (05:30)
[2019-03-19] MEDS ORDERED: NS 1,000 ML IV ONE (05:30)
--- NOTE | 2019-03-19 06:42 | REPVR ---
EXAM: CT Abdomen and Pelvis With Contrast EXAM DATE/TIME: 03/19/2019 5:05 AM CLINICAL HISTORY: 43 years old, female; Abdominal pain; Generalized; Additional info: Ruq TECHNIQUE: Imaging protocol: Axial computed tomography images of the abdomen and pelvis with intravenous contrast. Coronal and sagittal reformatted images were created and reviewed. Radiation optimization: All CT scans at this facility use at least one of these dose optimization techniques: automated exposure control; mA and/or kV adjustment per patient size (includes targeted exams where dose is matched to clinical indication); or iterative reconstruction. Contrast material: ISO; Contrast volume: 100 ml; Contrast route: AC; COMPARISON: CT ABD/PEL W/IV CONTRAST ONLY 02/07/2019 12:31 PM FINDINGS: Lungs: There is mild, nonspecific opacity in the dependent portions of the bilateral lower lobes and in the right middle lobe, possibly subsegmental atelectasis. ABDOMEN: Liver: There are no focal liver lesions present. Gallbladder and bile ducts: The gallbladder appears partially contracted. No stones are identified. No biliary ductal dilation is seen. Pancreas: The pancreas is normal with no ductal dilation. Spleen: The spleen is normal. Adrenals: The adrenal glands are normal. Kidneys and ureters: There is a 3.0 cm parapelvic cyst in the right kidney upper pole, with simple fluid density, unchanged. The left kidney appears unremarkable. There are no ureteral stones or hydronephrosis. Stomach and bowel: There appears to be short segment thickening of the wall of the mid transverse colon, but it is possible the appearance is caused by peristaltic contraction. (Images 95-101 of series 201.) The colon did not appear thickened at this site on the prior exam. No dilation or other sites of thickening of the colon are seen. There is a moderate to large large amount of stool throughout colon. The small bowel appears unremarkable. Appendix: There has been an appendectomy. PELVIS: Bladder: The bladder is mostly collapsed. No bladder stones are identified. Reproductive: The uterus is absent. ABDOMEN and PELVIS: Intraperitoneal space: There is a small amount of free fluid in the pelvis, similar to the prior exam. There is no free intraperitoneal air. Bones/joints: No suspicious osseous lesions. No acute fractures or dislocations. Soft tissues: Non-masslike density anteriorly in the left side of the pelvis is unchanged and probably related to a prior hernia repair. There is a small periumbilical hernia containing fat. There is a small fat containing left inguinal hernia, unchanged. Vasculature: The aorta is normal. No aneurysm. Lymph nodes: No lymphadenopathy is seen. IMPRESSION: 1. Moderate to large stool burden. No evidence of bowel obstruction. 2. Possible thickening of a short segment of the transverse colon, but the appearance may be due to peristalsis. 3. Small amount of nonspecific free fluid in the pelvis, similar to the prior exam. Electronically signed by: Windy Harden On 03/19/2019 06:42:47 AM
[2019-03-19 07:07] VITALS: BP 138/91
== END 2019-03-19 07:20 | disposition home or self-care (01) ==
LOC: M ED 03:50
DX: K59.9 Functional intestinal disorder, unspecified (principal); G89.4 Chronic pain syndrome; F41.9 Anxiety disorder, unspecified; F43.10 Post-traumatic stress disorder, unspecified; Z88.8 Allergy status to other drugs, medicaments and biological substances
CPT/HCPCS: 74177; 80048; 80076; 81001; 83690; 85025; 87086; 96361; 96374; 99284; J1885; Q9967

== ENCOUNTER → 2019-05-01 | Outpatient (CLI) | payer OTHER ==
[~2019-05-01] MED LIST changes: -TRAZ-160 PO; +TRAZ-252 PO
--- NOTE | 2019-05-01 17:11 | REP ---
Right forearm two views History: Fall There is no acute fracture or dislocation. The joint spaces are normal in appearance. Impression: There is no acute fracture or dislocation. Electronically Signed by Dillon Beavers MD 05/01/2019 05:03 P
--- NOTE | 2019-05-01 17:12 | REP ---
Right wrist four views History: Fall There is no acute fracture or dislocation. The joint spaces are normal in appearance. Impression: There is no acute fracture or dislocation. Electronically Signed by Dillon Beavers MD 05/01/2019 05:04 P
== END ==
LOC: M LRY 16:45
PROVIDERS: ATTEND Physician Assistant
DX: S59.911A Unspecified injury of right forearm, initial encounter (principal); S69.91XA Unspecified injury of right wrist, hand and finger(s), initial encounter; X58.XXXA Exposure to other specified factors, initial encounter; Y92.89 Other specified places as the place of occurrence of the external cause
CPT/HCPCS: 73090; 73110; 96372; G0463; J1885

== ENCOUNTER 2019-09-09 15:35 | Emergency (ER) | payer OTHER, SELFPAY ==
[~2019-09-09] VITALS: Ht 167.6 cm; Wt 90.4 kg
[~2019-09-09 15:35] MED LIST changes: +SENN-53 PO; -SENN1TAB40 PO
[2019-09-09] MEDS ORDERED: VITA-122 PO (15:51)
[2019-09-09] MEDS ORDERED: COLA100C5 PO (15:51)
[2019-09-09] MEDS ORDERED: GABA600T4 PO (15:51)
[2019-09-09] MEDS ORDERED: ACETAMINOPHEN 325 MG TAB PO ONE (16:45)
[2019-09-09] MEDS ORDERED: KETOROLAC 60 MG/2 ML VIAL (J1885) IM ONE (16:45)
--- NOTE | 2019-09-09 17:11 | REP ---
Limited cervical spine: Three views. History: Chronic neck pain. Comparison radiographs October 15, 2009. Comparison CT cervical spine January 21, 2019. Findings: The patient is status post ventral discectomy and fusion plating at the C 05/06 disc level. There is straightening of the normal cervical lordosis. Alignment is otherwise normal. Disc spaces are maintained. Swimmers lateral view shows no additional abnormality. No change from the CT findings. Impression: Status post C5-6 discectomy and fusion plating. No acute abnormality. Electronically Signed by Obey Coon MD 09/09/2019 05:03 P
[2019-09-09] MEDS ORDERED: CYCL10TA PO (17:59)
[2019-09-09] MEDS ORDERED: MEDR4PAK PO (17:59)
[2019-09-09 18:16] VITALS: BP 160/90
--- NOTE | 2019-09-09 20:20 | ECGEPIP ---
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
== END 2019-09-09 18:24 | disposition home or self-care (01) ==
LOC: M ED 15:35
DX: G44.209 Tension-type headache, unspecified, not intractable (principal); M50.30 Other cervical disc degeneration, unspecified cervical region; Z88.8 Allergy status to other drugs, medicaments and biological substances
CPT/HCPCS: 72040; 93005; 96372; 99284; J1885

== ENCOUNTER 2019-09-22 11:52 | Emergency (ER) | payer OTHER, SELFPAY ==
[~2019-09-22] VITALS: Ht 167.6 cm; Wt 90.6 kg
[~2019-09-22 11:52] MED LIST changes: +GABA600T4 PO; +MEDR4PAK PO; +VITA-122 PO
[2019-09-22] MEDS ORDERED: KETOROLAC 60 MG/2 ML VIAL (J1885) IM ONE (12:15)
--- NOTE | 2019-09-22 13:39 | REP ---
LUMBOSACRAL SPINE: Five views lumbosacral spine performed. There is no compression fracture or malalignment. There is normal lumbar lordosis with no spondylolysis or spondylolisthesis. Disc spaces are well preserved. Posterior elements are intact. IMPRESSION: No fracture or dislocation. Electronically Signed by Redd Delatorre MD 09/22/2019 02:44 P
[2019-09-22 13:47] VITALS: BP 148/88
[2019-09-22] MEDS ORDERED: MOBI4TAB PO (13:48)
[2019-09-22] MEDS ORDERED: NORCO, ANEXSIA 5/325MG TABLET (HYDROcodone/ACETAMINOPHEN) PO ONE (14:00)
== END 2019-09-22 14:07 | disposition home or self-care (01) ==
LOC: M ED 11:52
DX: M54.5 Low back pain (principal); F41.9 Anxiety disorder, unspecified; F32.9 Major depressive disorder, single episode, unspecified; F43.10 Post-traumatic stress disorder, unspecified; Z88.8 Allergy status to other drugs, medicaments and biological substances; Z79.899 Other long term (current) drug therapy
CPT/HCPCS: 72110; 99284; J1885

== ENCOUNTER 2019-12-06 08:21 | Emergency (ER) | payer OTHER, SELFPAY ==
[~2019-12-06] VITALS: Ht 170.2 cm; Wt 97.9 kg
[~2019-12-06 08:21] MED LIST changes: +ONDA8TAB10; -ONDA8TAB7
[2019-12-06] MEDS ORDERED: METH4PACK (08:30)
[2019-12-06] MEDS ORDERED: HYDR-3719 (08:30)
[2019-12-06] MEDS ORDERED: KETOROLAC 60 MG/2 ML VIAL (J1885) IM ONE (09:00)
[2019-12-06 09:35] VITALS: BP 127/91
== END 2019-12-06 09:40 | disposition home or self-care (01) ==
LOC: M ED 08:21
DX: M54.42 Lumbago with sciatica, left side (principal); E78.00 Pure hypercholesterolemia, unspecified; N80.9 Endometriosis, unspecified; F33.9 Major depressive disorder, recurrent, unspecified; F41.9 Anxiety disorder, unspecified; F43.10 Post-traumatic stress disorder, unspecified; Z79.899 Other long term (current) drug therapy; Z88.8 Allergy status to other drugs, medicaments and biological substances
CPT/HCPCS: 96372; 99283; J1885

== ENCOUNTER → 2020-01-25 | Outpatient (CLI) | payer OTHER ==
[~2020-01-25] MED LIST changes: +HYDR-3719; +METH4PACK
[2020-01-25 16:50] LABS: BASO % 0.6 % (0.0-1.0); EOS # 0.2 10^3/uL (0.0-0.5); EOS % 3.7 % (0.0-3.0); HEMATOCRIT 40.2 % (36.0-47.0); HEMOGLOBIN 13.2 g/dl (12.0-15.5); LYMPH # 2.2 10^3/uL (1.5-5.0); LYMPH % 34.6 % (24.0-44.0); MEAN CORPUSCULAR HEMOGLOBIN 29.5 pg (27.0-33.0); MEAN CORPUSCULAR HGB CONC 32.8 g/dl (32.0-36.5); MEAN CORPUSCULAR VOLUME 89.7 fl (80.0-96.0); MONO # 0.3 10^3/uL (0.0-0.8); MONO % 5.3 % (0.0-5.0); NEUTROPHILS # 3.5 10^3/uL (1.5-8.5); NEUTROPHILS % 55.6 % (36.0-66.0); PLATELET COUNT, AUTOMATED 240 10^3/uL (150-450); RED BLOOD COUNT 4.48 10^6/uL (4.00-5.40); WHITE BLOOD COUNT 6.2 10^3/uL (4.0-10.0)
[2020-01-25 17:00] LABS: BLOOD UREA NITROGEN 16 MG/DL (7-18); CALCIUM LEVEL 9.5 MG/DL (8.5-10.1); CARBON DIOXIDE LEVEL 29 MEQ/L (21-32); CHLORIDE LEVEL 107 MEQ/L (98-107); GLOMERULAR FILTRATION RATE > 60.0 (>58); GLUCOSE, FASTING 81 MG/DL (70-100); POTASSIUM SERUM 4.3 MEQ/L (3.5-5.1); SODIUM LEVEL 140 MEQ/L (136-145)
[2020-01-25 17:26] LABS: PARTIAL THROMBOPLASTIN TIME 30.7 SECONDS (25.0-38.4)
[2020-01-25 17:30] LABS: INR 1.04; PROTHROMBIN TIME 13.3 SECONDS (11.8-14.0)
== END ==
LOC: M WUC 15:13
PROVIDERS: ATTEND Physician Assistant
DX: Z01.818 Encounter for other preprocedural examination (principal)

== ENCOUNTER → 2020-03-15 | Day surgery (SDC) | payer OTHER ==
[~2020-03-15] VITALS: Ht 170.2 cm; Wt 90.3 kg
[~2020-03-15] MED LIST changes: +ACETAMINOPHEN 1000MG 100ML IV BTL (OFIRMEV) (J0131 PER 10MG) As Ordered ONE; +CYCL-707 PO; -CYCL10TA PO; +IBUPROFEN 600 MG TAB PO PRN; +KETOROLAC 60 MG/2 ML VIAL As Ordered ONE; +LIDOCAINE 1% MDV 20ML VIAL SQ PRN; +LIDOCAINE 2% 100MG/5ML SDV (FOR ANES.) As Ordered ONE; +LR 1,000 ML IV ONE; +LR 1,000 ML IV SCH; +METOCLOPRAMIDE INJ 10MG/2ML VIAL (J2765 PER 1) IV PRN; +MIDAZOLAM INJ 2MG/2ML VIAL (J2250 PER 1MG) As Ordered ONE; +NEUR300C PO; +NORCO, ANEXSIA 5/325MG TABLET (HYDROcodone/ACETAMINOPHEN) PO PRN; +ONDANSETRON 4MG/2ML VIAL As Ordered ONE; +ONDANSETRON 4MG/2ML VIAL IV PRN; +PERCOCET 5MG/325MG TAB PO PRN; +QC A650T3 PO; +ROCURONIUM BROMIDE 50 MG/5 ML VIAL As Ordered ONE; +SUGAMMADEX SODIUM 500 MG/5 ML VIAL (BRIDION) As Ordered ONE; +VITAD1000T PO; +dexameTHASONE 4 MG/ML 1ML VIAL (J1100 PER 1MG) As Ordered ONE; +fentaNYL 100 MCG/2 ML INJECTION (J3010) As Ordered ONE; +fentaNYL 100 MCG/2 ML INJECTION (J3010) IV PRN; +propofoL 200 MG/20 ML VIAL As Ordered ONE
--- NOTE | 2020-03-15 10:29 | RO ---
DATE OF SURGERY: 03/15/2020 PREOPERATIVE DIAGNOSIS AND INDICATION FOR SURGERY: Pain and apparently previous films showing a right adnexal lesion despite previous surgery for hysterectomy and bilateral salpingo-oophorectomy. POSTOPERATIVE DIAGNOSES: There was no lesion. She had some minor left-sided adhesions which were brought down, but there was no endometrial cyst, no ovarian remnants, no significant pelvic abnormality. PROCEDURE: Laparoscopy, lysis of adhesions. SURGEON: Riana Grissom MD MECHANICAL DESIGNER: None. ANESTHESIA: General endotracheal anesthesia. BRIEF DESCRIPTION OF PROCEDURE AND FINDINGS: Radha was brought to the operating room, where sufficient general endotracheal anesthesia was induced. She was prepped and draped and positioned in the usual sterile fashion. We, of course, did not put on a manipulator because she has no uterus. Attention was turned to the abdomen, where a semilunar incision was made below the umbilicus. Sharp and blunt dissection were continued through the subcutaneous tissues to the level of the rectus fascia, which was elevated with Agustín clamps, transversely incised under direct visualization, secured with 0 Vicryl retention sutures. Then, the peritoneum was bluntly entered under direct visualization in open laparoscopic technique. The Sharon cannula was then placed and CO2 insufflation then begun. After adequate CO2 insufflation, the peritoneal cavity was visualized. There were normal shiny peritoneal surfaces throughout. There was no excrescence, ascites, nor exudate, as noted in the operative photos. There was some minor omental adhesions and epiploical adhesions in the left lower abdomen; and in the anterior left lower abdomen, there is some minor scar tissue from the patient's previous hernia repair. There was no involvement of bowel or other tissue in this, and the hernia repair was inferior to the area of adhesions which appeared to be more at the pelvic brim and were also left anterior as documented in the operative photos. In the pelvis itself, the bladder had no adhesions. It was full enough to be easily identified. This is one of the reasons we did not drain it in this patient who obviously did not need a postoperative Henao anyway, and there were no adhesions of the bowel to the pelvis to the cul-de-sac at all. The patient was placed in Trendelenburg, and we could see again the enriqueta bowel fat and omental adhesions in the left anterior at the pelvic brim and the lower abdomen. On the left side, these did not involve bowel directly to the abdominal wall but more the fatty tissue there, and we took those down carefully using cold scissors without any undue difficulty; and we were able to manipulate all the tissues in the pelvis itself to confirm that there was no adnexal lesion. There was no pelvic lesion. Just there was some evidence of previous surgery, the type of minor scar changes that occur without adhesion, and then there was other left-sided adhesions which were photographed and taken down. The upper abdomen was also examined with the patient out of Trendelenburg, confirming no adhesions there and no evidence of other significant lesion within the peritoneal cavity. With those minor adhesions taken down and the absence of any significant pelvic pathology confirmed, the procedure was ended. Estimated blood loss for the procedure maybe 3 mL. Fluid replacement was crystalloid. COMPLICATIONS: None. CONDITION AND DISPOSITION: Radha tolerated the procedure well and was recovering in the recovery room in good condition.
[2020-03-15 11:40] VITALS: BP 130/85
== END | disposition home or self-care (01) ==
LOC: M SDC 07:03
PROVIDERS: ATTEND Obstetrics & Gynecology
DX: K66.0 Peritoneal adhesions (postprocedural) (postinfection) (principal); F43.10 Post-traumatic stress disorder, unspecified; E78.5 Hyperlipidemia, unspecified; Z79.899 Other long term (current) drug therapy; F41.9 Anxiety disorder, unspecified; F32.9 Major depressive disorder, single episode, unspecified; Z88.8 Allergy status to other drugs, medicaments and biological substances
CPT/HCPCS: 49329; J0131; J1100; J1885; J2250; J2405; J3010

== ENCOUNTER 2020-08-05 18:50 | Emergency (ER) | payer OTHER ==
[~2020-08-05] VITALS: Ht 170.2 cm; Wt 86.4 kg
[~2020-08-05 18:50] MED LIST changes: -ACETAMINOPHEN 1000MG 100ML IV BTL (OFIRMEV) (J0131 PER 10MG) As Ordered ONE; +D31000TA2 PO; -HYDR-2807 PO; +HYDR-4433 PO; -IBUPROFEN 600 MG TAB PO PRN; -KETOROLAC 60 MG/2 ML VIAL As Ordered ONE; -LIDOCAINE 1% MDV 20ML VIAL SQ PRN; -LIDOCAINE 2% 100MG/5ML SDV (FOR ANES.) As Ordered ONE; -LR 1,000 ML IV ONE; -LR 1,000 ML IV SCH; -METOCLOPRAMIDE INJ 10MG/2ML VIAL (J2765 PER 1) IV PRN; -MIDAZOLAM INJ 2MG/2ML VIAL (J2250 PER 1MG) As Ordered ONE; -NORCO, ANEXSIA 5/325MG TABLET (HYDROcodone/ACETAMINOPHEN) PO PRN; -ONDANSETRON 4MG/2ML VIAL As Ordered ONE; -ONDANSETRON 4MG/2ML VIAL IV PRN; -PERCOCET 5MG/325MG TAB PO PRN; -ROCURONIUM BROMIDE 50 MG/5 ML VIAL As Ordered ONE; -SUGAMMADEX SODIUM 500 MG/5 ML VIAL (BRIDION) As Ordered ONE; -VITAD1000T PO; -dexameTHASONE 4 MG/ML 1ML VIAL (J1100 PER 1MG) As Ordered ONE; -fentaNYL 100 MCG/2 ML INJECTION (J3010) As Ordered ONE; -fentaNYL 100 MCG/2 ML INJECTION (J3010) IV PRN; -propofoL 200 MG/20 ML VIAL As Ordered ONE
[2020-08-05] MEDS ORDERED: GABA600T4 PO (19:08)
[2020-08-05] MEDS ORDERED: IBUP200C28 PO (19:08)
[2020-08-05] MEDS ORDERED: CETI10CH PO (19:08)
[2020-08-05] MEDS ORDERED: IBUP-1022 PO (19:30)
[2020-08-05] MEDS ORDERED: CYCL-707 PO (19:30)
[2020-08-05] MEDS ORDERED: CYCLOBENZAPRINE 10MG TABLET PO ONE (19:30)
[2020-08-05 19:48] VITALS: BP 148/100
== END 2020-08-05 19:51 | disposition home or self-care (01) ==
LOC: M ED 18:50
DX: S43.421A Sprain of right rotator cuff capsule, initial encounter (principal); X50.3XXA Overexertion from repetitive movements, initial encounter; X50.0XXA Overexertion from strenuous movement or load, initial encounter; Y92.9 Unspecified place or not applicable; Y93.9 Activity, unspecified; Y99.9 Unspecified external cause status; Z79.899 Other long term (current) drug therapy; Z88.6 Allergy status to analgesic agent; Z88.8 Allergy status to other drugs, medicaments and biological substances; Z91.048 Other nonmedicinal substance allergy status

== ENCOUNTER → 2021-06-03 | Outpatient (REF) | payer OTHER ==
[~2021-06-03] MED LIST changes: -AMIT25TA; +AMIT25TA17; +CETI10CH PO; +GABA-282 PO; +GABA-283 PO; -GABA-843 PO; -GABA-845 PO; +IBUP200C28 PO
== END ==
LOC: M WUC 20:34
PROVIDERS: ATTEND Physician Assistant
DX: R30.0 Dysuria (principal)